=== PATIENT | male | born 1945 | race African-American/Black ===

== ENCOUNTER 2016-08-01 07:18 | Inpatient (IN) | payer OTHER ==
[~2016-08-01] VITALS: Ht 162.6 cm; Wt 57.0 kg
[~2016-08-01 07:18] MED LIST: ACET325T33 GTB; ALBU2.5V3 NEB; ASCO500S2 GTB; BISA10SU75 PR; CHLO118L3 PO; CRAN3875 GTB; ESOM40CA PO; FLEETOIL RC; HYDR-906 PO; MAGN400O4 PO; MULT9LIQ4 GTB; THIA100T10 GTB; UDCOL GTB
[2016-08-01] MEDS ORDERED: PIPER-TAZO 3.375 GM IV (PMX) 100 ML IVPB STA (07:32)
[2016-08-01] MEDS ORDERED: SODIUM CHLORIDE 0.9% 1L BAG IV* STA (07:32)
[2016-08-01] MEDS ORDERED: VANCOMYCIN 1 GM (PMX) 250 ML IVPB STA (07:32)
[2016-08-01 08:05] LABS: ADD SCAN DIFF NO
[2016-08-01 08:09] LABS: HEMATOCRIT 48.2 % (42.0-52.0); HEMOGLOBIN 15.6 g/dl (14.0-18.0); MEAN CORPUSCULAR HEMOGLOBIN 29.7 pg (29.0-33.0); MEAN CORPUSCULAR HGB CONC 32.4 g/dl (32.0-37.0); MEAN CORPUSCULAR VOLUME 91.8 fl (82.0-101.0); PLATELET COUNT 297 10^3/UL (140-415); RED BLOOD COUNT 5.25 10^6/ul (4.70-6.10); RED CELL DISTRIBUTION WIDTH 14.2 % (11.5-14.5); WHITE BLOOD COUNT 8.9 10^3/ul (4.8-10.8)
[2016-08-01 08:23] LABS: EOSINOPHILS # 0.3 10^3/ul (0.0-0.5); LYMPHOCYTES # 0.9 10^3/ul (0.8-2.9); MONOCYTE # 0.3 10^3/ul (0.3-0.9); NEUTROPHIL # 7.5 10^3/ul (1.6-7.5)
--- NOTE | 2016-08-01 08:31 | RADRPT ---
PROCEDURE: XR Chest. CLINICAL INDICATION: Possible sepsis. TECHNIQUE: Single AP portable chest COMPARISON: 10/26/2015 Chest x-ray FINDINGS: The cardiomediastinal silhouette is within normal limits of size. Tracheostomy is stable position. Atherosclerotic calcification of the aorta. Patchy interstitial and alveolar airspace opacities in the right mid and lower lung zones as well as perihilar region suspicious for early pneumonia. No p neumothorax. The osseous structures and soft tissues are unremarkable. IMPRESSION: 1. Interstitial and alveolar air space opacity in the right mid and lower lung zones suspicious andra y pneumonia. RPTAT:AAJJ Physician Roscoe Date Time Electronically viewed and signed by Physician Roscoe on 08/01/2016 08:30 ZAYDA/
[2016-08-01 08:35] LABS: ALANINE AMINOTRANSFERASE 25 IU/L (13-69); ALBUMIN 4.7 g/dl (3.3-4.9); ALKALINE PHOSPHATASE 97 IU/L (42-121); ANION GAP 19 (8-16); ASPARTATE AMINO TRANSFERASE 40 IU/L (15-46); BILIRUBIN,INDIRECT 0.4 mg/dl (0-1.1); BILIRUBIN,TOTAL 0.4 mg/dl (0.2-1.3); BLOOD UREA NITROGEN 25 mg/dl (7-20); CARBON DIOXIDE 26 mmol/L (21-31); CHLORIDE 103 mmol/L (97-110); CREATININE 0.94 mg/dl (0.61-1.24); GLUCOSE 107 mg/dl (70-220); POTASSIUM 4.5 mmol/L (3.5-5.1); SODIUM 143 mmol/L (135-144); TOTAL PROTEIN 8.6 g/dl (6.1-8.1)
[2016-08-01 08:38] LABS: ADD UMIC YES; UR BILIRUBIN (Dip) NEGATIVE (NEGATIVE); UR BLOOD (Dip) NEGATIVE (NEGATIVE); UR CLARITY SLIGHTLY CLOUDY (CLEAR); UR COLOR YELLOW (YELLOW); UR GLUCOSE (Dip) NEGATIVE (NEGATIVE); UR KETONES (Dip) NEGATIVE (NEGATIVE); UR LEUKOCYTE ESTERASE (Dip) 3+ (NEGATIVE); UR NITRITE (Dip) NEGATIVE (NEGATIVE); UR TOTAL PROTEIN (Dip) NEGATIVE (NEGATIVE); UR UROBILINOGEN (Dip) 0.2 E.U./dL (0.1-1.0)
[2016-08-01 08:39] LABS: INR 1.05; PROTIME 13.7 Sec (12.2-14.2); PT RATIO 1.1
[2016-08-01 08:40] LABS: PARTIAL THROMBOPLASTIN TIME 28.4 Sec (25.0-35.0)
--- NOTE | 2016-08-01 08:50 | ERA ---
ER Documentation Chief Complaint Date/Time DATE: 08/01/16 TIME: 08:19 Chief Complaint sob and low o2 sats per facility. hot to touch and rhochi noted per ems HPI 70-year-old male with chronic encephalopathy bedridden, quadriplegia, chronic respiratory failure, trach and G-tube dependent, DVT, chronic kidney disease stage I sent from his nursing facility for increased respiratory rate, increased heart rate, and low oxygen saturations. Patient is normally not on a vent. History is limited as the patient is nonverbal. Per EMS he had rales in the field with hypoxia. ROS Unable to obtain given patient is nonverbal. Medications Home Meds Reported Medications Ascorbic Acid* (Vitamin C* Liq) 500 Mg/5 Ml Syrup, 500 MG GTB DAILY, ML 10/20/15 Cran/Vitc/Mannose/Inulin/Brom (Uti-Stat Liquid) 3,875 Mg/30 Ml Liquid, 3875 MG GTB DAILY 10/20/15 Acetaminophen* (Tylenol*) 325 Mg Tablet, 650 MG GTB Q4H Y for MILD PAIN & TEMP 101F, TAB 10/20/15 Thiamine* (Thiamine*) 100 Mg Tablet, 100 MG GTB DAILY, TAB 10/20/15 Hydrocodone/Acetaminophen ([place] 5-325 Tablet) 1 Each Tablet, 1 EACH PO BID for PAIN, TAB 10/20/15 Hydrocodone/Acetaminophen ([place] 5-325 Tablet) 1 Each Tablet, 1 EACH PO Q6H Y for PAIN LEVEL 6-10, TAB 10/20/15 Esomeprazole Mag Trihydrate (Nexium) 40 Mg Capsule.dr, 40 MG PO DAILY, #30 CAP 10/20/15 Multivit &Minerals/Ferrous Fum (MULTIVITAMIN LIQUID) 9 Mg/15 Ml Liquid, 5 ML GTB DAILY 10/20/15 Magnesium Hydroxide* (Milk Of Magnesia*) 400 Mg/5 Ml Oral.susp, 30 ML PO DAILY Y for CONSTIPATION, ML 10/20/15 Mineral Oil (Fleet Mineral Oil Enema) 133 Ml Enema, 133 ML RC Y for IF DULCOLAX IS INEFFECTIVE, ENEMA 10/20/15 Bisacodyl* (Bisacodyl*) 10 Mg Supp, 10 MG ME DAILY Y for IF MOM IS INEFFECTIVE, SUPP 10/20/15 Docusate Sodium* (Colace* Liq) 50 Mg/5 Ml Liquid, 100 MG GTB QHS, EA 10/20/15 Chlorhexidine Gluconate* (Chlorhexidine Gluconate*) 118 Ml Liquid, 15 ML PO Q12H , ML 10/20/15 Albuterol Sulfate* (Albuterol Sulfate* Neb) 0.083%-3 Ml Neb, 2.5 MG NEB Q6H, # 30 VIAL 10/20/15 Albuterol Sulfate* (Albuterol Sulfate* Neb) 0.083%-3 Ml Neb, 2.5 MG NEB Q3H Y for WHEEZING AND SOB, #30 VIAL 10/20/15 Allergies Allergies: Coded Allergies: No Known Allergy (Unverified , 10/20/15) PMhx/Soc History of Surgery: Yes (TRACHEOSTOMY, GASTROSTOMY) Hx Neurological Disorder: No Hx Respiratory Disorders: Yes (RESPIRATORY FAILURE, PNEUMONIA, PNEUMONITIS) Hx Cardiac Disorders: No Hx Psychiatric Problems: No Hx Miscellaneous Medical Probl: Yes (Quadriplegic, CKD, DVT) Smoking Status: Unknown if ever smoked FmHx Family History: other (Unable to obtain) Physical Exam Vitals Vital Signs Date Time Temp Pulse Resp B/P Pulse Ox O2 Delivery O2 Flow Rate FiO2 08/01/16 08:48 113 20 140/101 100 Mechanical Ventilator 08/01/16 07:54 101.5 125 30 118/86 100 08/01/16 07:25 124 36 100 60 Physical Exam Const: Chronically ill-appearing, cachectic, nonverbal, mild respiratory distress Head: Atraumatic Eyes: Normal Conjunctiva ENT: Dry mucous membranes Neck: Tracheostomy in place Resp: Anterior rales noted on the right anterior lung field which resolved after placing patient on vent, otherwise clear without wheezing Cardio: Tachycardic with regular rhythm, no murmurs Abd: Soft, non tender, non distended. G-tube noted. Normal bowel sounds Skin: No petechiae or rashes Back: No midline or flank tenderness Ext: No cyanosis, or edema. Muscle atrophy noted in all 4 extremities Neur: Awake and alert, nonverbal, spontaneously moves upper extremities Result Diagram: 08/01/16 0745 08/01/16 0745 Results 24 hrs Laboratory Tests Test 08/01/16 07:45 08/01/16 08:00 White Blood Count 8.910^3/ul Red Blood Count 5.2510^6/ul Hemoglobin 15.6g/dl Hematocrit 48.2% Mean Corpuscular Volume 91.8fl Mean Corpuscular Hemoglobin 29.7pg Mean Corpuscular Hemoglobin Concent 32.4g/dl Red Cell Distribution Width 14.2% Platelet Count 93163^3/UL Mean Platelet Volume 12.0fl Neutrophils % 84.0% Lymphocytes % 10.0% Monocytes % 3.0% Eosinophils % 3.0% Neutrophils # 7.510^3/ul Lymphocytes # 0.910^3/ul Monocytes # 0.310^3/ul Eosinophils # 0.310^3/ul Differential Comment AUTO w/SCAN Prothrombin Time 13.7Sec Prothrombin Time Ratio 1.1 INR International Normalized Ratio 1.05 Activated Partial Thromboplast Time 28.4Sec Sodium Level 143mmol/L Potassium Level 4.5mmol/L Chloride Level 103mmol/L Carbon Dioxide Level 26mmol/L Anion Gap 19 Blood Urea Nitrogen 25mg/dl Creatinine 0.94mg/dl Glucose Level 107mg/dl Lactic Acid Level 3.8mmol/L Calcium Level 10.0mg/dl Total Bilirubin 0.4mg/dl Direct Bilirubin 0.00mg/dl Indirect Bilirubin 0.4mg/dl Aspartate Amino Transf (AST/SGOT) 40IU/L Alanine Aminotransferase (ALT/SGPT) 25IU/L Alkaline Phosphatase 97IU/L Troponin I < 0.012ng/ml Total Protein 8.6g/dl Albumin 4.7g/dl Globulin 3.90g/dl Albumin/Globulin Ratio 1.20 Urine Color YELLOW Urine Clarity SLIGHTLY CLOUDY Urine pH 6.0 Urine Specific [place] 1.010 Urine Ketones NEGATIVE Urine Nitrite NEGATIVE Urine Bilirubin NEGATIVE Urine Urobilinogen 0.2 E.U./dL Urine Leukocyte Esterase 3+ Urine Microscopic RBC NONE SEEN/HPF Urine Microscopic WBC 10-25/HPF Urine Epithelial Cells RARE Urine Bacteria MODERATE Urine Hemoglobin NEGATIVE Urine Glucose NEGATIVE% Urine Total Protein NEGATIVE Current Medications Medications (Trade) Dose Ordered Sig/Carlin Route PRN Reason Start Time Stop Time Status Last Admin Dose Admin Sodium Chloride 1550 ml 1,550 ml BOLUS OVER 2 HOURS STAT IV* 08/01/16 07:32 08/01/16 07:35 DC 08/01/16 08:26 Vancomycin HCl 250 ml @ 125 mls/hr ONCE STAT IVPB 08/01/16 07:32 08/01/16 09:31 DC 08/01/16 09:38 Piperacillin Sod/ Tazobactam Sod (Zosyn 3.375gm/ 100 ml (Pmx)) 100 ml @ 200 mls/hr ONCE STAT IVPB 08/01/16 07:32 08/01/16 08:01 DC 08/01/16 07:32 Acetaminophen (Tylenol Supp) 650 mg ONCE ONCE ME 08/01/16 09:00 08/01/16 09:01 DC Procedures/MDM EKG: Rate/Rhythm: Sinus tachycardia at 138 bpm QRS, ST, T-waves: [No changes consistent w/ acute ischemia] Impression: [No evidence of ischemia or arrhythmia] Chest X-ray 1V Interpreted by me: Soft Tissue: No acute abnormalities Bones: No acute abnormalities Mediastinum/Cardiac Silhouette/Lungs: Right-sided infiltrates in the right middle lobe, no cardiomegaly, no mediastinal widening Labs: CBC: No anemia, normal white blood cell count, left shift noted CMP: Elevated BUN, no evidence of electrolyte abnormality, hypoglycemia, liver failure, or biliary obstruction Troponin within normal limits Lactate 3.8 UA: Evidence of infection MDM Patient is presenting with new onset fever with signs of sepsis. I suspect possible pneumonia. He was started on vancomycin and Zosyn for healthcare associated pneumonia. Urinalysis showed signs of infection. 30 cc/kg fluids were started. Given the patient's hypoxia and respiratory distress, and he was placed on a vent with improvement of his vital signs and distress. Patient's infectious symptoms have not stabilized and the patient is at risk of rapid decompensation. The patient will be admitted to the ICU for careful hydration, respiratory management, antibiotic therapy, and infectious source control. Severe Sepsis Assessment: Infectious Source: Pneumonia, UTI End organ damage indicated by: Lactate > 2.0 mmol/L Acute Resp Failure (sat < 92% w/o oxygen) Severe Sepsis Managment: Blood Cultures X 2 before broad spectrum antibiotics initiated within 3 hours of recognition. 30 ml/kg NS bolus Completed Initial Lactate: 3.8 Repeat Lactate pending Critical Care: Time: 35 minutes Treatments/Evaluations: Emergent fluid management, while maintaining close respiratory support. Immediate broad spectrum antibiotic therapy. Simultaneous assessment for possible sources in order to direct therapy. Consideration for invasive and chemical support to prevent respiratory or cardiac collapse. Accepting Care Team: Current data and ongoing care discussed. Time: Time of admission Primary Provider: Charly Consulting: None Outstanding Data: Cultures, repeat lactate Departure Diagnosis: Primary Impression: Sepsis Qualified Code: A41.9 - Sepsis, due to unspecified organism Additional Impressions: Healthcare-associated pneumonia UTI (urinary tract infection) Qualified Code: N30.00 - Acute cystitis without hematuria Acute and chronic respiratory failure with hypoxia Condition: Critical LUCAS ACEVEDO MD Aug 01, 2016 08:34
[2016-08-01] MEDS ORDERED: ACETAMINOPHEN 650 MG SUPP PR ONE (09:00)
[2016-08-01 09:02] LABS: UR BACTERIA MODERATE; URINE RBCS NONE SEEN /HPF (0)
[2016-08-01 09:04] LABS: TROPONIN-I < 0.012 ng/ml (0.00-0.12)
[2016-08-01 10:36] LABS: AADO2 Arterial 238.9 mmHg (7.0-24.0); Allen Test ACCEPTAB; Arterial Base Excess -1.6 mmol/L (-3.0-3); Arterial COHb 0.1 % (0.0-3.0); Arterial Fraction of Oxyhgb 95.2 % (93.0-99.0); Arterial HCO3 21.6 mmol/L (22.0-26.0); Arterial MetHb 0.3 % (0.0-1.5); Arterial Total Hemglobin 14.6 g/dl (12.0-18.0); MODE VENT - AC
[2016-08-01] MEDS ORDERED: ONDANSETRON 4 MG INJ IV PRN (11:30)
[2016-08-01] MEDS ORDERED: NACL 0.9% 3 ML SYG IV SCH (11:30)
[2016-08-01] MEDS ORDERED: ENOX40DI2 SC (11:34)
[2016-08-01] MEDS ORDERED: OMEP20CA16 GTB (11:34)
[2016-08-01] MEDS ORDERED: LEVA0.634 INHALATION (11:34)
[2016-08-01] MEDS: SOD CHLORIDE 0.9% 1,000 ML IV SCH (12:00)
[2016-08-01] MEDS ORDERED: VANCOMYCIN IV PER PHARMACY XX SCH (12:00)
--- NOTE | 2016-08-01 13:03 | HP ---
DATE OF ADMISSION: 08/01/2016 REASON FOR ADMISSION: Transferred from a assisted facility because of worsening respiratory distress and febrile illness. CONSULTATIONS: 1. Dr. Tate Caruso, Infectious Disease. 2. Dr. Ryan Dent, pulmonology. HISTORY OF PRESENT ILLNESS: This is an unfortunate 70-year-old male who is chronically bedridden with chronic encephalopathy who has chronic respiratory failure with a tracheostomy usually to room air who was brought in from a assisted facility because of a febrile illness and increased respiratory rate. The patient is nonverbal and is unable to give any detailed history. The details of the patient's medical problems were obtained by review of the patient's medical records. In the emergency room, the patient was noticed to have a fever of 101.5 degrees Fahrenheit. The patient's urinalysis showed positive 3+ leukocyte esterase with urine microscopic WBC of 10 to 25. The patient's chest x-ray was showing interstitial and alveolar airspace opacity in the right mid and lower lung zones , suspicious for early pneumonia. The patient also had underlying lactic acidosis and anion gap metabolic acidosis. In the emergency room, the patient was treated with IV Zosyn and IV vancomycin along with IV normal saline bolus. The patient was started on mechanical ventilation because of underlying hypoxia. PAST MEDICAL HISTORY: Chronic bedridden status, chronic encephalopathy, chronic respiratory failure, status post tracheostomy, multiple pressure ulcers. PAST SURGICAL HISTORY: G-tube placement. CORRECTION MEDICATIONS: 1. Levalbuterol 0.63 mg inhalation q. 6 hours p.r.n. dyspnea. 2. Lovenox 40 mg subcutaneous daily. 3. Colace 100 mg via G-tube q. at bedtime. 4. Vitamin C 500 mg via G-tube daily. 5. Thiamine 100 mg via G-tube daily. 6. Magnesium hydroxide 30 mL via G-tube daily p.r.n. constipation. ALLERGIES: NO KNOWN DRUG ALLERGIES. SOCIAL HISTORY: The patient is a detention resident. The patient is nonverbal. REVIEW OF SYSTEMS: Unable to obtain review of systems because the patient is nonverbal. PHYSICAL EXAMINATION: VITAL SIGNS: Temperature 101.5, pulse of 102, respiratory rate 21, blood pressure 134/111, oxygen saturation 100% on 45% FIO2 via mechanical ventilator. GENERAL: This is a thin, frail-looking male lying in bed in no apparent distress. HEENT: Head normocephalic and atraumatic. Eyes: Anicteric sclerae. Conjunctivae clear. ENT: Nasal septum is midline. Oral mucosa is dry. Poor dentition. NECK: Tracheostomy in midline. No JVD noticed. RESPIRATORY: Bilateral coarse breath sounds. A tracheostomy connected to mechanical ventilator. On AC mode ventilation. CARDIAC: S1, S2, heard. Sinus tachycardia. ABDOMEN: Scaphoid. Left upper quadrant G-tube in place. Bowel sounds hypoactive in all 4 quadrants. GENITOURINARY: The patient has a Maldonado catheter in place. EXTREMITIES: No edema, no clubbing. Peripheral pulses are palpable. NEUROLOGIC: The patient has chronic encephalopathy. LABORATORY AND DIAGNOSTIC DATA: WBC 8.9, hemoglobin 15.6, hematocrit 48.2, platelet count 297. Sodium 143, potassium 4.5, chloride 103, carbon dioxide 26 , anion gap 19, BUN 25, creatinine 0.94, glucose 107, calcium 10.0. AST 40, ALT 25, alkaline phosphatase 97. Troponin less than 0.012. Total protein 8.6, albumin 4.7. Blood gas that was done on 50% FiO2 via mechanical ventilator, pH 7.443, pCO2 of 32.3, pO2 81.3, bicarbonate 21.6, base excess -1.6. PT 13.7, INR 1.05, PTT 28.4. Urinalysis: Urine nitrite negative, urine leukocyte esterase 3+. Urine microscopic WBC 10 to 25. Chest x-ray: Interstitial and alveolar airspace opacity in the right mid and lower lung zones, suspicious for early pneumonia. 12-lead EKG with sinus tachycardia. IMPRESSION: This is a 70-year-old male who is a detention resident, chronically bedridden, who was brought to the emergency room because of concerns of fevers and tachypnea and was found to have evidence of sepsis. He will be admitted here for further treatment and evaluation. ASSESSMENT AND PLAN: 1. Suspected sepsis. The patient has febrile illness, tachypnea, and lactic acidosis. The suspected source of infection is either urine and/or lungs. The patient has no evidence of any septic shock. The patient will be started on empiric antibiotics. Harvey cultures will be obtained. Infectious disease consult will be obtained. 2. Acute on chronic respiratory failure. The patient has chronic respiratory failure. He has a tracheostomy usually on room air. The patient has been noticed to be hypoxic. The patient was started on mechanical ventilation. The patient will be started on inhaled bronchodilators. Pulmonology consult will be obtained for ventilator management. 3. Multiple skin wounds. Wound care consult will be obtained for further evaluation of these wounds. 4. Anion gap acidosis, most probably secondary to #1. The patient will be adequately hydrated. The patient will be maintained on antibiotics. Plan. The patient will be admitted to inpatient intensive care unit. The patient will be started on DVT prophylaxis and gastrointestinal prophylaxis. Activities will be bed rest. The rest of the patient's management will be based on the clinical course, the results of diagnostic studies, and input from consultants. Based on the patient's clinical presentation, he most probably requires at least 2 midnights' stay for further management and evaluation of his clinical presentation. The case and management of this patient was fully discussed with Dr. Sevilla. KYMBERLY SEVILLA MD, AM/JOSE Conf#: [id number] DID#: [id number] MTDD
--- NOTE | 2016-08-01 13:04 | CONS ---
Date/Time of Note Date/Time of Note DATE: 08/01/16 TIME: 12:58 Assessment/Plan Assessment/Plan Additional Assessment/Plan Chest x-ray was reviewed from today which is showing right upper lobe pneumonia. UA is positive for UTI. Ventilator setting; AC of 12, tidal volume 500, PEEP of 5, 50% FiO2. Assessment recommendations; next 1. Patient admitted with pneumonia and UTI currently on appropriate antibiotic regimen. 2. Chronic respiratory failure, now requiring invasive mechanical ventilation. 3. History of paraplegia. Continue current treatment. Obtain follow-up chest x-ray in 24-48 hours. Consultation Date/Type/Reason Admit Date/Time Date of Consultation: Aug 01, 2016 Type of Consultation: Pulmonary/critical care Reason for Consultation Pulmonary consultation requested for evaluation of sepsis and pneumonia. History of present illness; patient is a 70-year-old F [place] male who was transferred to go to ER from long-term with complaints of being short of breath and tachypneic and tachycardic. Patient has been diagnosed with UTI with sepsis as well as right lower lobe pneumonia. The patient is awake and is now requiring invasive mechanical ventilation. Patient usually maintained on tracheal T piece at the long-term. Patient is awake and alert. Past medical history; next 1. Patient with history of chronic respiratory failure, usually maintained on tracheal T piece. 2. History of paraplegia. 3. History of DVT. 4. History of G-tube and tracheostomy. 5. History of sacral decubitus, stage I. Medications; reviewed. Allergies; none. Social history; patient never smoked. Family history; noncontributory. Occupation she; patient currently on disability. Review of systems; limited review system could be obtained patient denies any shortness of breath any chest pain any nausea vomiting. Stephani; elderly male, on ventilator via tracheostomy currently in no distress. Awake. Social History Smoking Status: Unknown if ever smoked Exam/Review of Systems Vital Signs Vitals Vital Signs Date Time Temp Pulse Resp B/P Pulse Ox O2 Delivery O2 Flow Rate FiO2 08/01/16 11:57 116 23 136/96 100 Mechanical Ventilator 08/01/16 10:47 45 08/01/16 07:54 101.5 Exam HEENT exam is; supple neck, no JVD. No lymphadenopathy. Midline trachea. No thyromegaly. Patient is edentulous. Pupils are small bilaterally. Chest examination; diminished breath sounds bilaterally. No added sound. S1- S2 audible, no murmurs. Regular rhythm. Abdomen examination; soft, no organomegaly. G-tube in place. Bowel sounds audible. Extremity exam; no peripheral edema. Back exam; stage I sacral decubitus ulcer. [employer] examination; patient is paraplegic. Results Result Diagram: 08/01/16 0745 08/01/16 0745 Results 24 hrs Laboratory Tests Test 08/01/16 07:45 08/01/16 08:00 08/01/16 09:52 08/01/16 09:55 White Blood Count 8.9 # Red Blood Count 5.25 # Hemoglobin 15.6 # Hematocrit 48.2 # Mean Corpuscular Volume 91.8 Mean Corpuscular Hemoglobin 29.7 Mean Corpuscular Hemoglobin Concent 32.4 Red Cell Distribution Width 14.2 Platelet Count 297 Mean Platelet Volume 12.0 H Neutrophils % 84.0 H Lymphocytes % 10.0 L Monocytes % 3.0 Eosinophils % 3.0 Neutrophils # 7.5 Lymphocytes # 0.9 Monocytes # 0.3 Eosinophils # 0.3 Differential Comment AUTO w/SCAN Prothrombin Time 13.7 Prothrombin Time Ratio 1.1 INR International Normalized Ratio 1.05 Activated Partial Thromboplast Time 28.4 Sodium Level 143 Potassium Level 4.5 Chloride Level 103 Carbon Dioxide Level 26 Anion Gap 19 H Blood Urea Nitrogen 25 H Creatinine 0.94 Glucose Level 107 Lactic Acid Level 3.8 H 2.7 H Calcium Level 10.0 Total Bilirubin 0.4 Direct Bilirubin 0.00 Indirect Bilirubin 0.4 Aspartate Amino Transf (AST/SGOT) 40 Alanine Aminotransferase (ALT/SGPT) 25 Alkaline Phosphatase 97 Troponin I < 0.012 Total Protein 8.6 H Albumin 4.7 Globulin 3.90 H Albumin/Globulin Ratio 1.20 Urine Color YELLOW Urine Clarity SLIGHTLY CLOUDY Urine pH 6.0 Urine Specific [place] 1.010 Urine Ketones NEGATIVE Urine Nitrite NEGATIVE Urine Bilirubin NEGATIVE Urine Urobilinogen 0.2 E.U./dL Urine Leukocyte Esterase 3+ H Urine Microscopic RBC NONE SEEN Urine Microscopic WBC 10-25 Urine Epithelial Cells RARE Urine Bacteria MODERATE Urine Hemoglobin NEGATIVE Urine Glucose NEGATIVE Urine Total Protein NEGATIVE Blood Gas Specimen Source Blood arterial Arterial Blood Date Drawn 08/01/2016 10:24:47 AM Arterial Blood pH (Temp corrected) 7.443 Arterial Blood pCO2 (Temp correct) 32.3 L Arterial Blood pO2 (Temp corrected) 81.3 Arterial Blood HCO3 21.6 L Arterial Blood Base Excess -1.6 Arterial Blood Oxygen Saturation 95.6 Ankit Test ACCEPTAB Arterial Blood Gas Puncture Site Right Radial Arterial Blood Carboxyhemoglobin 0.1 Arterial Blood Methemoglobin 0.3 Blood Gas A-a O2 Differential 238.9 H Oxyhemoglobin Percent 95.2 Total Hemoglobin 14.6 Blood Gas Temperature 37.0 Blood Gas Respiration Rate 12.0 Blood Gas Actual Respiration Rate 17 Blood Gas Modality VENT - AC FiO2 50.0 Blood Gas Tidal Volume 500.0 Blood Gas Low PEEP Setting 5.0 Blood Gas Notified Whom LS Blood Gas Notified Time 08/01/2016 10:35:49 AM Medications Medications Current Medications Ondansetron HCl (Zofran Inj) 4 mg Q6H PRN IV NAUSEA AND/OR VOMITING; Start at 11:30 Acetaminophen (Tylenol Tab) 650 mg Q6H PRN GTB PAIN LEVEL 1-3 OR FEVER; Start 08/01/16 at 11:30 Morphine Sulfate (morphine) 2 mg Q4H PRN IV PAIN LEVEL 7-10; Start 08/01/16 at 11:30 Famotidine 20 mg 20 mg Q12 IV ; Start 08/01/16 at 21:00 Piperacillin Sod/ Tazobactam Sod 100 ml @ 100 mls/hr Q6 IVPB ; Start 08/01/16 at 12:30 Sodium Chloride (NS) 1,000 ml @ 75 mls/hr [id number] IV ; Start 08/01/16 at 12:00 Enoxaparin Sodium (Lovenox) 30 mg DAILY SC ; Start 08/02/16 at 09:00 Hydralazine HCl 10 mg 10 mg Q6H PRN IV SBP>160; Start 08/01/16 at 12:00 Vancomycin HCl (Vancocin) 250 ml @ 125 mls/hr Q24H IVPB ; Start 08/02/16 at 08: 00 SAMMY AGUSTIN 18, 2017 13:04
[2016-08-01] MEDS: PIPER-TAZO 3.375 GM IV (PMX) 100 ML IVPB SCH ×2 (13:30→20:00)
[2016-08-01] MEDS ORDERED: ALBUTEROL 0.083% (NEB) 2.5 MG/3 ML AMP HHN SCH (14:00)
--- NOTE | 2016-08-01 14:44 | CONS ---
DATE OF ADMISSION: 08/01/2016 DATE OF CONSULTATION: 08/01/2016 TYPE OF CONSULTATION: Infectious Disease. REASON FOR CONSULTATION: Antibiotic management. HISTORY OF PRESENT ILLNESS: Ric Baez is a 70-year-old male who was transferred from [facility] facility with worsening respiratory failure and febrile illness. His past problems inclu de: 1. Chronic encephalopathy. 2. Ventilator-dependent respiratory failure. 3. Status post tracheostomy. The patient was brought in with increased respiratory rate. He is nonverbal and unable to give any detailed information. In the emergency room, his temperature was 101.5. The patient's urinalysis s howed 3+ leukocyte esterase. A urine microscopic was 10 to 25 white cells per high-power field. X- ray showed interstitial and alveolar airspace opacity in the right mid and lower lung zones, suspici ous for early pneumonia. The patient has underlying lactic acidosis and anion gap metabolic acidosi s. In the emergency room, he was treated with vancomycin and Zosyn along with IV saline. PAST MEDICAL HISTORY: As outlined including multiple pressure sores. PAST SURGICAL HISTORY: Includes tracheostomy and G-tube placement. FAMILY HISTORY: Noncontributory. SOCIAL HISTORY: He does not smoke, drink, or abuse drugs. He is encephalopathic. ALLERGIES: NONE TO PENICILLIN, SULFA, OR FOODS. MEDICATIONS: Per chart. REVIEW OF SYSTEMS: As per HPI. PHYSICAL EXAMINATION: GENERAL: The patient is a thin, frail appearing black male who is lying in bed in no acute distress . VITAL SIGNS: T-max of 101.5, pulse of 102. He is on 45% FIO2 mechanical ventilation with oxygen sa turation 100%. SKIN: Without generalized rash. HEENT: Within normal limits. NECK: Supple. LYMPH NODES: None palpable. His dentition is very poor. NECK: Supple. Tracheostomy is midline. CHEST: Decreased breath sounds at the bases. HEART: Without murmur or gallop. ABDOMEN: Soft, nontender, without organosplenomegaly or masses. G-tube in place without leakage. EXTREMITIES: Without cyanosis, clubbing, or edema. RECTAL AND GENITAL: Maldonado catheter in place. NEUROLOGIC: No focal neurological abnormalities. HOSPITAL COURSE: On admission, his white count was 8.9, H and H of 15.6 and 48.2, platelet count 29 7,000. BUN and creatinine 25/0.94. Blood gas done with FIO2 of 50%, was reasonable. Urinalysis sh owed urine leukocyte esterase was 3+ and 10 to 25 white cells per high powered field. Chest x-ray i s as noted, interstitial and alveolar airspace opacities in the right mid and lower lung zones. The patient was also seen by Dr. Dent for pulmonary who notes that the patient has pneumonia. He is a lso paraplegic. We will continue him on current therapy. I will dictate my findings to the hospita list and Dr. Dent. Dictated By: SHRUTHI LAZO MD, JD/JOSE Conf#: [id number] DID#: [id number]
[2016-08-01] MEDS: ALBUTEROL 18 GM INHALER INH SCH (20:08)
[2016-08-01] MEDS: FAMOTIDINE 20 MG INJ IV SCH (20:17)
[2016-08-02] MEDS: PIPER-TAZO 3.375 GM IV (PMX) 100 ML IVPB SCH ×4 (00:53→17:43)
[2016-08-02] MEDS: morphine 2 MG INJ IV PRN ×5 (00:53→20:20)
[2016-08-02] MEDS: SOD CHLORIDE 0.9% 1,000 ML IV SCH ×2 (00:53→16:32)
[2016-08-02] MEDS: ALBUTEROL 18 GM INHALER INH SCH ×5 (01:40→19:10)
[2016-08-02 05:58] LABS: ADD SCAN DIFF NO
[2016-08-02 06:09] LABS: HEMATOCRIT 38.5 % (42.0-52.0); HEMOGLOBIN 12.5 g/dl (14.0-18.0); MEAN CORPUSCULAR HEMOGLOBIN 30.4 pg (29.0-33.0); MEAN CORPUSCULAR HGB CONC 32.5 g/dl (32.0-37.0); MEAN CORPUSCULAR VOLUME 93.7 fl (82.0-101.0); MEAN PLATELET VOLUME 11.5 fl (7.4-10.4); PLATELET COUNT 291 10^3/UL (140-415); RED BLOOD COUNT 4.11 10^6/ul (4.70-6.10); RED CELL DISTRIBUTION WIDTH 14.5 % (11.5-14.5); WHITE BLOOD COUNT 16.8 10^3/ul (4.8-10.8)
[2016-08-02 06:41] LABS: MAGNESIUM 2.1 mg/dl (1.7-2.5); PHOSPHORUS 2.5 mg/dl (2.5-4.9)
[2016-08-02 06:42] LABS: ALBUMIN 4.2 g/dl (3.3-4.9); ALBUMIN/GLOBULIN RATIO 1.31; BILIRUBIN,INDIRECT 0.4 mg/dl (0-1.1); BILIRUBIN,TOTAL 0.4 mg/dl (0.2-1.3); CALCIUM 9.1 mg/dl (8.4-10.2); CREATININE 0.99 mg/dl (0.61-1.24); POTASSIUM 3.8 mmol/L (3.5-5.1); TOTAL PROTEIN 7.4 g/dl (6.1-8.1)
[2016-08-02 07:13] LABS: THYROID STIMULATING HORMONE 1.62 MIU/L (0.465-4.680)
[2016-08-02] MEDS: VANCOMYCIN 1 GM in NS 250 ML IVPB SCH (07:56)
[2016-08-02] MEDS: FAMOTIDINE 20 MG INJ IV SCH ×2 (09:34→22:59)
[2016-08-02] MEDS: ENOXAPARIN 30 MG/0.3 ML SYG SC SCH (09:34)
[2016-08-02 10:11] LABS: EOSINOPHILS # 0.5 10^3/ul (0.0-0.5); LYMPHOCYTES # 1.7 10^3/ul (0.8-2.9); MONOCYTE # 0.5 10^3/ul (0.3-0.9); NEUTROPHIL # 10.8 10^3/ul (1.6-7.5)
--- NOTE | 2016-08-02 11:56 | PN ---
Date/Time of Note Date/Time of Note DATE: 08/02/16 TIME: 11:54 Assessment/Plan VTE Prophylaxis VTE Prophylaxis Intervention: LMWH Assessment/Plan Chief Complaint/Hosp Course 1. Sepsis secondary to underlying urinary tract infection and possible healthcare associated pneumonia. The patient has no evidence of any septic shock. The patient will be continued on empiric antibiotics. Infectious disease is following the patient 2. Acute on chronic respiratory failure. The patient has chronic respiratory failure. He has a tracheostomy usually on room air. The patient has been noticed to be hypoxic. The patient was started on mechanical ventilation. The patient will be maintained on inhaled bronchodilators. Pulmonology following. 3. Multiple skin wounds. Wound care consult will be obtained for further evaluation of these wounds. 4. Anion gap acidosis, most probably secondary to #1. The patient will be adequately hydrated. The patient will be maintained on antibiotics. 5. Dysphagia. Continue tube feedings. Aspiration precautions. 6. Fluids, electrolytes, and nutrition. Continue IV hydration. Continue G- tube feedings. 7. DVT prophylaxis. Subcutaneous Lovenox. 8. Gastrointestinal prophylaxis. Histamine 2 receptor blockers. 9. Plan. Continue antibiotics. Await final cultures. Continue supportive care. Weaning off ventilator as per pulmonology. Case discussed with . Problems: Subjective 24 Hr Interval Summary Free Text/Dictation The patient remains afebrile. Exam/Review of Systems Vital Signs Vitals Vital Signs Date Time Temp Pulse Resp B/P Pulse Ox O2 Delivery O2 Flow Rate FiO2 08/02/16 11:11 107 23 97 45 08/02/16 09:54 98.9 08/02/16 09:09 109/71 Mechanical Ventilator Intake and Output 08/01/16 08/01/16 08/02/16 15:00 23:00 07:00 Intake Total 1475 ml Output Total 1100 ml Balance 375 ml Exam GENERAL: This is a thin, frail-looking male lying in bed in no apparent distress. HEENT: Head normocephalic and atraumatic. Eyes: Anicteric sclerae. Conjunctivae clear. ENT: Nasal septum is midline. Oral mucosa is dry. Poor dentition. NECK: Tracheostomy in midline. No JVD noticed. RESPIRATORY: Bilateral coarse breath sounds. A tracheostomy connected to mechanical ventilator. On AC mode ventilation. CARDIAC: S1, S2, heard. Sinus tachycardia. ABDOMEN: Scaphoid. Left upper quadrant G-tube in place. Bowel sounds hypoactive in all 4 quadrants. GENITOURINARY: The patient has a Maldonado catheter in place. EXTREMITIES: No edema, no clubbing. Peripheral pulses are palpable. NEUROLOGIC: The patient has chronic encephalopathy. Results Result Diagram: 08/02/16 0530 08/02/16 0530 Results 24 hrs Laboratory Tests Test 08/01/16 14:50 08/02/16 05:30 Lactic Acid Level 3.3 H White Blood Count 16.8 #H Red Blood Count 4.11 #L Hemoglobin 12.5 L Hematocrit 38.5 #L Mean Corpuscular Volume 93.7 Mean Corpuscular Hemoglobin 30.4 Mean Corpuscular Hemoglobin Concent 32.5 Red Cell Distribution Width 14.5 Platelet Count 291 Mean Platelet Volume 11.5 H Neutrophils % 64.0 Band Neutrophils % 20.0 H Lymphocytes % 10.0 L Monocytes % 3.0 Eosinophils % 3.0 Basophils % Nucleated Red Blood Cells % Neutrophils # 10.8 H Lymphocytes # 1.7 Monocytes # 0.5 Eosinophils # 0.5 Basophils # Nucleated Red Blood Cells # Differential Comment MANUAL DIFF Sodium Level 143 Potassium Level 3.8 Chloride Level 109 Carbon Dioxide Level 26 Anion Gap 12 # Blood Urea Nitrogen 15 # Creatinine 0.99 Glucose Level 99 Hemoglobin A1c 5.6 Calcium Level 9.1 Phosphorus Level 2.5 Magnesium Level 2.1 Total Bilirubin 0.4 Direct Bilirubin 0.00 Indirect Bilirubin 0.4 Aspartate Amino Transf (AST/SGOT) 27 Alanine Aminotransferase (ALT/SGPT) 34 Alkaline Phosphatase 76 Total Protein 7.4 # Albumin 4.2 Globulin 3.20 Albumin/Globulin Ratio 1.31 Triglycerides Level 61 Cholesterol Level 133 LDL Cholesterol, Calculated 77 HDL Cholesterol 44 Cholesterol/HDL Ratio 3.0 Vitamin D 1,25-Dihydroxy 28.6 L Thyroid Stimulating Hormone (TSH) 1.620 Free Thyroxine 1.20 Medications Medications Current Medications Ondansetron HCl (Zofran Inj) 4 mg Q6H PRN IV NAUSEA AND/OR VOMITING Last administered on 08/02/16t 00:53; Admin Dose 4 MG; Start 08/01/16 at 11:30 Acetaminophen (Tylenol Tab) 650 mg Q6H PRN GTB PAIN LEVEL 1-3 OR FEVER; Start 08/01/16 at 11:30 Morphine Sulfate (morphine) 2 mg Q4H PRN IV PAIN LEVEL 7-10 Last administered on 08/02/16 08:49; Admin Dose 2 MG; Start 08/01/16 at 11:30 Famotidine 20 mg 20 mg Q12 IV Last administered on 08/02/16 09:34; Admin Dose 20 MG; Start 08/01/16 at 21:00 Piperacillin Sod/ Tazobactam Sod 100 ml @ 100 mls/hr Q6 IVPB Last administered on 08/02/16 11:37; Admin Dose 100 MLS/HR; Start 08/01/16 at 12:30 Sodium Chloride (NS) 1,000 ml @ 75 mls/hr [id number] IV Last administered on 08/02 00:53; Admin Dose 75 MLS/HR; Start 08/01/16 at 12:00 Enoxaparin Sodium (Lovenox) 30 mg DAILY SC Last administered on 08/02/16 09:34 ; Admin Dose 30 MG; Start 08/02/16 at 09:00 Hydralazine HCl 10 mg 10 mg Q6H PRN IV SBP>160; Start 08/01/16 at 12:00 Vancomycin HCl (Vancocin) 250 ml @ 125 mls/hr Q24H IVPB Last administered on 07:56; Admin Dose 125 MLS/HR; Start 08/02/16 at 08:00 Albuterol (Ventolin Hfa) 4 puff Q6 INH Last administered on 08/02/16 11:08; Admin Dose 4 PUFF; Start 08/01/16 at 20:00 KYMBERLY CAMPOS NP Aug 02, 2016 11:56
--- NOTE | 2016-08-02 13:13 | CONS ---
Date/Time of Note Date/Time of Note DATE: 08/02/16 TIME: 13:11 Assessment/Plan Assessment/Plan Additional Assessment/Plan Ventilator setting; AC of 12, tidal volume 500, PEEP of 5, 45% FiO2. Assessment recommendations; next 1. Patient admitted for pneumonia and sepsis. Patient also has UTI. 2. Chronic respiratory failure patient now requiring invasive mechanical ventilation. 3. History of dementia and paraplegia. Continue current supportive care. Consultation Date/Type/Reason Admit Date/Time Initial Consult Date 08/01/16 Type of Consultation: Pulmonary/critical care 24 HR Interval Summary Free Text/Dictation Patient condition is stable. Patient still in the emergency room. Awaiting transfer to ICU. Patient is not much responsive. Stephani; elderly male, on ventilator via tracheostomy currently in no distress. Minimally arousable. Exam/Review of Systems Vital Signs Vitals Vital Signs Date Time Temp Pulse Resp B/P Pulse Ox O2 Delivery O2 Flow Rate FiO2 08/02/16 11:11 107 23 97 45 08/02/16 09:54 98.9 08/02/16 09:09 109/71 Mechanical Ventilator Intake and Output 08/01/16 08/01/16 08/02/16 15:00 23:00 07:00 Intake Total 1475 ml Output Total 1100 ml Balance 375 ml Exam HEENT exam; supple neck, no JVD. No lymphadenopathy. Midline trachea. No thyromegaly. Patient multiple carious teeth. Tracheostomy in place with clean insertion site. Chest exam; diminished but clear vessel. S1-S2 audible, no murmurs. Regular rhythm. Abdomen examination; soft, no organomegaly. Bowel sounds audible. G-tube in place. Extremity exam; no peripheral edema. Patient has significant muscle loss involving the entire body. MEDICAL SALES SPECIALIST exam; patient remains minimally responsive. Results Result Diagram: 08/02/16 0530 08/02/16 0530 Results 24 hrs Laboratory Tests Test 08/01/16 14:50 08/02/16 05:30 Lactic Acid Level 3.3 H White Blood Count 16.8 #H Red Blood Count 4.11 #L Hemoglobin 12.5 L Hematocrit 38.5 #L Mean Corpuscular Volume 93.7 Mean Corpuscular Hemoglobin 30.4 Mean Corpuscular Hemoglobin Concent 32.5 Red Cell Distribution Width 14.5 Platelet Count 291 Mean Platelet Volume 11.5 H Neutrophils % 64.0 Band Neutrophils % 20.0 H Lymphocytes % 10.0 L Monocytes % 3.0 Eosinophils % 3.0 Basophils % Nucleated Red Blood Cells % Neutrophils # 10.8 H Lymphocytes # 1.7 Monocytes # 0.5 Eosinophils # 0.5 Basophils # Nucleated Red Blood Cells # Differential Comment MANUAL DIFF Sodium Level 143 Potassium Level 3.8 Chloride Level 109 Carbon Dioxide Level 26 Anion Gap 12 # Blood Urea Nitrogen 15 # Creatinine 0.99 Glucose Level 99 Hemoglobin A1c 5.6 Calcium Level 9.1 Phosphorus Level 2.5 Magnesium Level 2.1 Total Bilirubin 0.4 Direct Bilirubin 0.00 Indirect Bilirubin 0.4 Aspartate Amino Transf (AST/SGOT) 27 Alanine Aminotransferase (ALT/SGPT) 34 Alkaline Phosphatase 76 Total Protein 7.4 # Albumin 4.2 Globulin 3.20 Albumin/Globulin Ratio 1.31 Triglycerides Level 61 Cholesterol Level 133 LDL Cholesterol, Calculated 77 HDL Cholesterol 44 Cholesterol/HDL Ratio 3.0 Vitamin D 1,25-Dihydroxy 28.6 L Thyroid Stimulating Hormone (TSH) 1.620 Free Thyroxine 1.20 Medications Medications Current Medications Ondansetron HCl (Zofran Inj) 4 mg Q6H PRN IV NAUSEA AND/OR VOMITING Last administered on 08/02/16 00:53; Admin Dose 4 MG; Start 08/01/16 at 11:30 Acetaminophen (Tylenol Tab) 650 mg Q6H PRN GTB PAIN LEVEL 1-3 OR FEVER; Start 08/01/16 at 11:30 Morphine Sulfate (morphine) 2 mg Q4H PRN IV PAIN LEVEL 7-10 Last administered on 08/02/16 08:49; Admin Dose 2 MG; Start 08/01/16 at 11:30 Famotidine 20 mg 20 mg Q12 IV Last administered on 08/02/16 09:34; Admin Dose 20 MG; Start 08/01/16 at 21:00 Piperacillin Sod/ Tazobactam Sod 100 ml @ 100 mls/hr Q6 IVPB Last administered on 08/02/16 11:37; Admin Dose 100 MLS/HR; Start 08/01/16 at 12:30 Sodium Chloride (NS) 1,000 ml @ 75 mls/hr [id number] IV Last administered on 08/02 00:53; Admin Dose 75 MLS/HR; Start 6/18/17 at 12:00 Enoxaparin Sodium (Lovenox) 30 mg DAILY SC Last administered on 08/02/16 09:34 ; Admin Dose 30 MG; Start 08/02/16 at 09:00 Hydralazine HCl 10 mg 10 mg Q6H PRN IV SBP>160; Start 08/01/16 at 12:00 Vancomycin HCl (Vancocin) 250 ml @ 125 mls/hr Q24H IVPB Last administered on 07:56; Admin Dose 125 MLS/HR; Start 08/02/16 at 08:00 Albuterol (Ventolin Hfa) 4 puff Q6 INH Last administered on 08/02/16 11:08; Admin Dose 4 PUFF; Start 08/01/16 at 20:00 SAMMY AGUSTIN Aug 02, 2016 13:13
[2016-08-02] MEDS: ACETAMINOPHEN 325 MG TAB GTB PRN (20:20)
[2016-08-02 23:03] VITALS: TEMP 98.9
[2016-08-02 23:46] VITALS: PULSE 120
[2016-08-03] VITALS (25 sets, daily range): BP systolic 113–125; BP diastolic 72–79; PULSE 101–120; RESP 17–27; Ht 162.6 cm; Wt 57.0 kg
[2016-08-03] MEDS: PIPER-TAZO 3.375 GM IV (PMX) 100 ML IVPB SCH ×4 (00:55→18:32)
[2016-08-03] MEDS: ALBUTEROL 18 GM INHALER INH SCH ×4 (01:32→19:34)
[2016-08-03] MEDS: ACETAMINOPHEN 325 MG TAB GTB PRN (05:04)
[2016-08-03] MEDS: SOD CHLORIDE 0.9% 1,000 ML IV SCH ×2 (05:06→17:20)
[2016-08-03 06:16] LABS: ADD SCAN DIFF NO
[2016-08-03 06:29] LABS: BASOPHILS % 0.2 % (0.0-2.0); EOSINOPHILS # 0.2 10^3/ul (0.0-0.5); EOSINOPHILS % 1.3 % (0.0-7.0); HEMATOCRIT 31.3 % (42.0-52.0); HEMOGLOBIN 10.2 g/dl (14.0-18.0); LYMPHOCYTES % 6.2 % (15.0-51.0); MEAN CORPUSCULAR HEMOGLOBIN 30.3 pg (29.0-33.0); MEAN CORPUSCULAR HGB CONC 32.6 g/dl (32.0-37.0); MEAN CORPUSCULAR VOLUME 92.9 fl (82.0-101.0); MEAN PLATELET VOLUME 11.9 fl (7.4-10.4); MONOCYTE # 0.6 10^3/ul (0.3-0.9); MONOCYTES % 3.7 % (0.0-11.0); NEUTROPHIL # 14.5 10^3/ul (1.6-7.5); NEUTROPHILS % 87.6 % (39.0-77.0); PLATELET COUNT 212 10^3/UL (140-415); RED BLOOD COUNT 3.37 10^6/ul (4.70-6.10); RED CELL DISTRIBUTION WIDTH 14.7 % (11.5-14.5); WHITE BLOOD COUNT 16.6 10^3/ul (4.8-10.8)
[2016-08-03 07:08] LABS: ALBUMIN 3.4 g/dl (3.3-4.9); ALBUMIN/GLOBULIN RATIO 1.17; BILIRUBIN,INDIRECT 0.2 mg/dl (0-1.1); BILIRUBIN,TOTAL 0.2 mg/dl (0.2-1.3); CALCIUM 8.5 mg/dl (8.4-10.2); CREATININE 0.97 mg/dl (0.61-1.24); POTASSIUM 3.5 mmol/L (3.5-5.1); TOTAL PROTEIN 6.3 g/dl (6.1-8.1)
[2016-08-03 07:21] LABS: PHOSPHORUS 1.8 mg/dl (2.5-4.9)
[2016-08-03] MEDS: FAMOTIDINE 20 MG INJ IV SCH ×2 (08:24→21:17)
[2016-08-03] MEDS: VANCOMYCIN 1 GM in NS 250 ML IVPB SCH (08:24)
[2016-08-03] MEDS: ENOXAPARIN 30 MG/0.3 ML SYG SC SCH (08:30)
--- NOTE | 2016-08-03 12:26 | CONS ---
Date/Time of Note Date/Time of Note DATE: 08/03/16 TIME: 12:24 Assessment/Plan Assessment/Plan Additional Assessment/Plan Ventilator setting; AC of 12, tidal volume 500, PEEP of 5, 45% FiO2. Assessment recommendations; 1. Patient admitted with sepsis from UTI and pneumonia. 2. Advanced dementia. 3. Chronic respiratory failure, now requiring invasive mechanical ventilation. 4. History of paraplegia and dementia. Continue current treatment. Consultation Date/Type/Reason Admit Date/Time Aug 01, 2016 at 11:32 Initial Consult Date 08/01/16 Type of Consultation: Pulmonary/critical care 24 HR Interval Summary Free Text/Dictation Patient's condition remains stable. Remains minimally responsive. Has remained hemodynamically stable. General exam; elderly male, on ventilator via tracheostomy currently in no distress. Exam/Review of Systems Vital Signs Vitals Vital Signs Date Time Temp Pulse Resp B/P Pulse Ox O2 Delivery O2 Flow Rate FiO2 08/03/16 11:47 96 22 99 45 08/03/16 11:45 98.0 120/79 08/02/16 23:03 Mechanical Ventilator Intake and Output 08/02/16 08/02/16 08/03/16 15:00 23:00 07:00 Intake Total 575 ml Output Total 575 ml Balance -575 ml 575 ml Exam HEENT examination; supple neck, no JVD. No lymphadenopathy. Midline trachea. No thyromegaly. Patient has multiple carious teeth. Tracheostomy in place. Chest examined; diminished breath sounds throughout. S1-S2 audible, no murmurs. Regular rhythm. Abdomen examination; soft, G-tube in place. No organomegaly. Extremity exam is; no peripheral edema. BLEACHER LARD exam is; patient is minimally responsive. Results Result Diagram: 08/03/16 0555 08/03/16 0555 Results 24 hrs Laboratory Tests Test 08/03/16 05:55 White Blood Count 16.6 H Red Blood Count 3.37 L Hemoglobin 10.2 L Hematocrit 31.3 L Mean Corpuscular Volume 92.9 Mean Corpuscular Hemoglobin 30.3 Mean Corpuscular Hemoglobin Concent 32.6 Red Cell Distribution Width 14.7 H Platelet Count 212 # Mean Platelet Volume 11.9 H Neutrophils % 87.6 H Lymphocytes % 6.2 L Monocytes % 3.7 Eosinophils % 1.3 Basophils % 0.2 Nucleated Red Blood Cells % 0.0 Neutrophils # 14.5 H Lymphocytes # 1.0 Monocytes # 0.6 Eosinophils # 0.2 Basophils # 0.0 Nucleated Red Blood Cells # 0.0 Sodium Level 143 Potassium Level 3.5 Chloride Level 112 H Carbon Dioxide Level 23 Anion Gap 12 Blood Urea Nitrogen 13 Creatinine 0.97 Glucose Level 128 Calcium Level 8.5 Phosphorus Level 1.8 L Magnesium Level 2.0 Total Bilirubin 0.2 Direct Bilirubin 0.00 Indirect Bilirubin 0.2 Aspartate Amino Transf (AST/SGOT) 24 Alanine Aminotransferase (ALT/SGPT) 30 Alkaline Phosphatase 94 Total Protein 6.3 # Albumin 3.4 Globulin 2.90 Albumin/Globulin Ratio 1.17 Medications Medications Current Medications Ondansetron HCl (Zofran Inj) 4 mg Q6H PRN IV NAUSEA AND/OR VOMITING Last administered on 08/02/16 00:53; Admin Dose 4 MG; Start 08/01/16 at 11:30 Acetaminophen (Tylenol Tab) 650 mg Q6H PRN GTB PAIN LEVEL 1-3 OR FEVER Last administered on 08/03/16 05:04; Admin Dose 650 MG; Start 08/01/16 at 11:30 Morphine Sulfate (morphine) 2 mg Q4H PRN IV PAIN LEVEL 7-10 Last administered on 08/02/16 20:20; Admin Dose 2 MG; Start 08/01/16 at 11:30 Famotidine 20 mg 20 mg Q12 IV Last administered on 08/03/16 08:24; Admin Dose 20 MG; Start 08/01/16 at 21:00 Piperacillin Sod/ Tazobactam Sod 100 ml @ 100 mls/hr Q6 IVPB Last administered on 08/03/16 05:04; Admin Dose 100 MLS/HR; Start 08/01/16 at 12:30 Sodium Chloride (NS) 1,000 ml @ 75 mls/hr [id number] IV Last administered on 08/03 05:06; Admin Dose 75 MLS/HR; Start 08/01/16 at 12:00 Enoxaparin Sodium (Lovenox) 30 mg DAILY SC Last administered on 08/03/16 08:30 ; Admin Dose 30 MG; Start 08/02/16 at 09:00 Hydralazine HCl 10 mg 10 mg Q6H PRN IV SBP>160; Start 08/01/16 at 12:00 Vancomycin HCl (Vancocin) 250 ml @ 125 mls/hr Q24H IVPB Last administered on t 08:24; Admin Dose 125 MLS/HR; Start 08/02/16 at 08:00 Miscellaneous Information (*Rx Drug Level Order Reminder*) 1 ONCE ONCE XX ; Start 08/04/16 at 07:00; Stop 08/04/16 at 07:01 SAMMY AGUSTIN Aug 03, 2016 12:26
--- NOTE | 2016-08-03 12:55 | PN ---
DATE: 08/03/2016 SUBJECTIVE: No acute changes. The patient is lying comfortably in bed. No fevers. He had some lo ose stools. VITAL SIGNS: Temperature max 100.4, T-current 98, pulse 96, respirations 20, blood pressure 120/79, saturation 95% on vent. LABORATORY DATA: WBC 16.6, H and H 10.2 and 31.3, platelets 212, neutrophils 87.6, no bands. BUN 1 3, creatinine 0.97. INDWELLINGS: Trach, PEG, Maldonado. ANTIMICROBIALS: The patient is on: 1. IV vancomycin. 2. Zosyn. MICROBIOLOGY: Urine culture growing Providencia stuartii, multidrug resistant. DIAGNOSTICS: Chest x-ray on admission revealed right middle and lower lung zone pneumonia. PHYSICAL EXAMINATION: GENERAL: Fragile chronically ill-appearing elderly man who is in no distress. HEENT: Head atraumatic, normocephalic. Sclerae anicteric. Buccal mucosa dry. NECK: Supple. Tracheostomy present. CHEST: Rise symmetrical. Breath sounds diminished with scattered rhonchi. HEART: S1, S2. ABDOMEN: Soft, bowel sounds present. EXTREMITIES: Contractured. ASSESSMENT: 1. Sepsis with fevers, leukocytosis, bandemia and tachycardia on admission. 2. Pneumonia. 3. Multidrug resistant urinary tract infection. 4. Diarrhea, rule out Clostridium difficile colitis. 5. Chronic encephalopathy. PLAN: We are going to send stool for C. difficile. Add empiric Flagyl. Continue on current antimi crobials for now. Continue vent management as per pulmonary. Dictated By: ALLYSON MCBRIDE LINE WORKER for SHRUTHI ARANDA/NTS Conf#: [id number] DID#: [id number]
--- NOTE | 2016-08-03 13:05 | PN ---
Date/Time of Note Date/Time of Note DATE: 08/03/16 TIME: 12:58 Assessment/Plan VTE Prophylaxis VTE Prophylaxis Intervention: LMWH Lines/Catheters IV C[facility]ter Type (from [facility]): Peripheral IV Urinary Cath still in place: Yes Reason Cath still needed: skin wounds contaminated by urine Assessment/Plan Assessment/Plan 1. Sepsis secondary to underlying urinary tract infection (Providencia Spp) - adjust antibiotics based on sensitivities (defer to ID) and possible healthcare associated pneumonia. The patient has no evidence of any septic shock. The patient will be continued on empiric antibiotics. Infectious disease is following the patient - appreciated - cdiff sent 2. Acute on chronic respiratory failure. Trach dependent. He has a tracheostomy usually on room air. The patient has been noticed to be hypoxic. The patient was started on mechanical ventilation. The patient will be maintained on inhaled bronchodilators. Pulmonology following. 3. Multiple skin wounds. f/u wound care. 4. Anion gap acidosis, most probably secondary to #1. The patient will be adequately hydrated. The patient will be maintained on antibiotics. 5. Dysphagia. Continue tube feedings. Aspiration precautions. Monitor for residuals 6. Fluids, electrolytes, and nutrition. Continue IV hydration. Continue G- tube feedings. 7. DVT prophylaxis. Subcutaneous Lovenox. 8. Gastrointestinal prophylaxis. Histamine 2 receptor blockers. Plan. Continue antibiotics. C diff pending culture. Continue supportive care. Weaning off ventilator as per pulmonology. this progress note took greater than 30 minutes to complete Subjective 24 Hr Interval Summary Free Text/Dictation Patient had no overnight events. Copious amount of loose stools noted near rectum. Spoke to the nurse about the care plan. 15 minutes spent. Exam/Review of Systems Vital Signs Vitals Vital Signs Date Time Temp Pulse Resp B/P Pulse Ox O2 Delivery O2 Flow Rate FiO2 08/03/16 11:47 96 22 99 45 08/03/16 11:45 98.0 120/79 08/02/16 23:03 Mechanical Ventilator Intake and Output 08/02/16 08/02/16 08/03/16 15:00 23:00 07:00 Intake Total 575 ml Output Total 575 ml Balance -575 ml 575 ml Exam Gen Joy: NAD, Alert to self HEENT: NC/AT, PERRLA NECK: supple, trach site C/D/I THORAX: symmetrical, no obvious deformities CV: S1S2, RRR, no M/G/R Lungs: CTAB no W/C/R/R Abd: soft, NT/ND, +BS, no rebound, no guarding, neg HSM EXT: no edema, no ecchymosis, no clubbing, FROM Neuro: difficult to assess 2/2 to mentation Psych: withdrawn Skin: C/D/I Results Result Diagram: 08/03/16 0555 08/03/16 0555 Results 24 hrs Laboratory Tests Test 08/03/16 05:55 White Blood Count 16.6 H Red Blood Count 3.37 L Hemoglobin 10.2 L Hematocrit 31.3 L Mean Corpuscular Volume 92.9 Mean Corpuscular Hemoglobin 30.3 Mean Corpuscular Hemoglobin Concent 32.6 Red Cell Distribution Width 14.7 H Platelet Count 212 # Mean Platelet Volume 11.9 H Neutrophils % 87.6 H Lymphocytes % 6.2 L Monocytes % 3.7 Eosinophils % 1.3 Basophils % 0.2 Nucleated Red Blood Cells % 0.0 Neutrophils # 14.5 H Lymphocytes # 1.0 Monocytes # 0.6 Eosinophils # 0.2 Basophils # 0.0 Nucleated Red Blood Cells # 0.0 Sodium Level 143 Potassium Level 3.5 Chloride Level 112 H Carbon Dioxide Level 23 Anion Gap 12 Blood Urea Nitrogen 13 Creatinine 0.97 Glucose Level 128 Calcium Level 8.5 Phosphorus Level 1.8 L Magnesium Level 2.0 Total Bilirubin 0.2 Direct Bilirubin 0.00 Indirect Bilirubin 0.2 Aspartate Amino Transf (AST/SGOT) 24 Alanine Aminotransferase (ALT/SGPT) 30 Alkaline Phosphatase 94 Total Protein 6.3 # Albumin 3.4 Globulin 2.90 Albumin/Globulin Ratio 1.17 Medications Medications Current Medications Ondansetron HCl (Zofran Inj) 4 mg Q6H PRN IV NAUSEA AND/OR VOMITING Last administered on 08/02/16 00:53; Admin Dose 4 MG; Start 08/01/16 at 11:30 Acetaminophen (Tylenol Tab) 650 mg Q6H PRN GTB PAIN LEVEL 1-3 OR FEVER Last administered on 08/03/16 05:04; Admin Dose 650 MG; Start 08/01/16 at 11:30 Morphine Sulfate (morphine) 2 mg Q4H PRN IV PAIN LEVEL 7-10 Last administered on 08/02/16 20:20; Admin Dose 2 MG; Start 08/01/16 at 11:30 Famotidine 20 mg 20 mg Q12 IV Last administered on 08/03/16 08:24; Admin Dose 20 MG; Start 08/01/16 at 21:00 Piperacillin Sod/ Tazobactam Sod 100 ml @ 100 mls/hr Q6 IVPB Last administered on 08/03/16 05:04; Admin Dose 100 MLS/HR; Start 08/01/16 at 12:30 Sodium Chloride (NS) 1,000 ml @ 75 mls/hr [id number] IV Last administered on 08/03 05:06; Admin Dose 75 MLS/HR; Start 08/01/16 at 12:00 Enoxaparin Sodium (Lovenox) 30 mg DAILY SC Last administered on 08/03/16 08:30 ; Admin Dose 30 MG; Start 08/02/16 at 09:00 Hydralazine HCl 10 mg 10 mg Q6H PRN IV SBP>160; Start 08/01/16 at 12:00 Vancomycin HCl (Vancocin) 250 ml @ 125 mls/hr Q24H IVPB Last administered on 08:24; Admin Dose 125 MLS/HR; Start 08/02/16 at 08:00 Miscellaneous Information (*Rx Drug Level Order Reminder*) 1 ONCE ONCE XX ; Start 08/04/16 at 07:00; Stop 08/04/16 at 07:01 Metronidazole (Flagyl) 500 mg Q8 NGT ; Start 08/03/16 at 14:00 KEVYN FARIAS MD Aug 03, 2016 13:05
[2016-08-03] MEDS ORDERED: SODIUM PHOSPHATE 40 MEQ in SOD CHLORIDE 0.9% 250 ML IVPB ONE (14:00)
[2016-08-03] MEDS: metroNIDAZOLE 500 MG TAB NGT SCH ×2 (14:09→21:17)
[2016-08-04] VITALS (22 sets, daily range): BP systolic 104–146; BP diastolic 70–86; PULSE 108–114; RESP 18–34
[2016-08-04] MEDS: PIPER-TAZO 3.375 GM IV (PMX) 100 ML IVPB SCH ×5 (00:12→23:24)
[2016-08-04] MEDS: ALBUTEROL 18 GM INHALER INH SCH ×4 (02:50→20:31)
[2016-08-04] MEDS: SOD CHLORIDE 0.9% 1,000 ML IV SCH ×2 (02:50→20:13)
[2016-08-04] MEDS: morphine 2 MG INJ IV PRN ×2 (02:50→13:27)
[2016-08-04] MEDS: metroNIDAZOLE 500 MG TAB NGT SCH ×3 (05:48→21:04)
[2016-08-04 07:42] LABS: ADD SCAN DIFF NO
[2016-08-04 07:50] LABS: BASOPHILS % 0.2 % (0.0-2.0); EOSINOPHILS # 0.7 10^3/ul (0.0-0.5); EOSINOPHILS % 4.2 % (0.0-7.0); HEMATOCRIT 30.2 % (42.0-52.0); HEMOGLOBIN 9.9 g/dl (14.0-18.0); LYMPHOCYTES # 1.2 10^3/ul (0.8-2.9); LYMPHOCYTES % 7.8 % (15.0-51.0); MEAN CORPUSCULAR HEMOGLOBIN 30.1 pg (29.0-33.0); MEAN CORPUSCULAR HGB CONC 32.8 g/dl (32.0-37.0); MEAN CORPUSCULAR VOLUME 91.8 fl (82.0-101.0); MEAN PLATELET VOLUME 12.9 fl (7.4-10.4); MONOCYTE # 0.7 10^3/ul (0.3-0.9); MONOCYTES % 4.8 % (0.0-11.0); NEUTROPHIL # 12.7 10^3/ul (1.6-7.5); NEUTROPHILS % 82.2 % (39.0-77.0); PLATELET COUNT 212 10^3/UL (140-415); RED BLOOD COUNT 3.29 10^6/ul (4.70-6.10); RED CELL DISTRIBUTION WIDTH 14.9 % (11.5-14.5); WHITE BLOOD COUNT 15.5 10^3/ul (4.8-10.8)
[2016-08-04 08:20] LABS: CALCIUM 8.5 mg/dl (8.4-10.2); CREATININE 0.91 mg/dl (0.61-1.24)
[2016-08-04] MEDS: VANCOMYCIN 1 GM in NS 250 ML IVPB SCH (08:37)
[2016-08-04] MEDS: FAMOTIDINE 20 MG INJ IV SCH ×2 (08:37→21:00)
[2016-08-04] MEDS: ENOXAPARIN 30 MG/0.3 ML SYG SC SCH (08:43)
--- NOTE | 2016-08-04 12:30 | PN ---
Date/Time of Note Date/Time of Note DATE: 08/04/16 TIME: 12:29 Assessment/Plan VTE Prophylaxis VTE Prophylaxis Intervention: SCD's Lines/Catheters IV Catheter Type (from Nrs): Peripheral IV Urinary Cath still in place: Yes Reason Cath still needed: other (indicate) (chronic) Assessment/Plan Assessment/Plan 70 yo M with chronic encephalopathy, chronic respiratory failure on vent transferred from OSH for sepsis, presumed 2/2 UTI v HCAP 1. Sepsis secondary to underlying urinary tract infection (Providencia Spp) - adjust antibiotics based on sensitivities (defer to ID) and possible healthcare associated pneumonia. The patient has no evidence of any septic shock. The patient will be continued on empiric antibiotics. Infectious disease is following the patient - appreciated - cdiff sent 2. Acute on chronic respiratory failure. Trach dependent. He has a tracheostomy usually on room air. The patient has been noticed to be hypoxic. The patient was started on mechanical ventilation. The patient will be maintained on inhaled bronchodilators. Pulmonology following. 3. Multiple skin wounds. f/u wound care. 4. Anion gap acidosis, most probably secondary to #1. The patient will be adequately hydrated. The patient will be maintained on antibiotics. 5. Dysphagia. Continue tube feedings. Aspiration precautions. Monitor for residuals 6. Fluids, electrolytes, and nutrition. Continue IV hydration. Continue G- tube feedings. 7. DVT prophylaxis. Subcutaneous Lovenox. 8. Gastrointestinal prophylaxis. Histamine 2 receptor blockers. Plan. Continue antibiotics. C diff pending culture. Continue supportive care. Weaning off ventilator as per pulmonology. Abx as per ID Subjective 24 Hr Interval Summary Free Text/Dictation No acute overnight events Exam/Review of Systems Vital Signs Vitals Vital Signs Date Time Temp Pulse Resp B/P Pulse Ox O2 Delivery O2 Flow Rate FiO2 08/04/16 11:46 98.6 119 30 144/83 96 08/04/16 05:42 45 08/02/16 23:03 Mechanical Ventilator Intake and Output 08/03/16 08/03/16 08/04/16 15:00 23:00 07:00 Intake Total 980 ml 1750 ml 850 ml Output Total 500 ml 600 ml 550 ml Balance 480 ml 1150 ml 300 ml Exam nad, laying in bed, +trach lungs clear rrr abd soft no rashes Results Result Diagram: 08/04/16 0700 08/04/16 0700 Results 24 hrs Laboratory Tests Test 08/04/16 07:00 White Blood Count 15.5 H Red Blood Count 3.29 L Hemoglobin 9.9 L Hematocrit 30.2 L Mean Corpuscular Volume 91.8 Mean Corpuscular Hemoglobin 30.1 Mean Corpuscular Hemoglobin Concent 32.8 Red Cell Distribution Width 14.9 H Platelet Count 212 Mean Platelet Volume 12.9 H Neutrophils % 82.2 H Lymphocytes % 7.8 L Monocytes % 4.8 Eosinophils % 4.2 Basophils % 0.2 Nucleated Red Blood Cells % 0.0 Neutrophils # 12.7 H Lymphocytes # 1.2 Monocytes # 0.7 Eosinophils # 0.7 H Basophils # 0.0 Nucleated Red Blood Cells # 0.0 Sodium Level 148 H Potassium Level 3.0 L Chloride Level 114 H Carbon Dioxide Level 22 Anion Gap 15 Blood Urea Nitrogen 10 Creatinine 0.91 Glucose Level 126 Calcium Level 8.5 Vancomycin Level Trough 5.6 L Medications Medications Current Medications Ondansetron HCl (Zofran Inj) 4 mg Q6H PRN IV NAUSEA AND/OR VOMITING Last administered on 08/02/16 00:53; Admin Dose 4 MG; Start 08/01/16 at 11:30 Acetaminophen (Tylenol Tab) 650 mg Q6H PRN GTB PAIN LEVEL 1-3 OR FEVER Last administered on 08/03/16 05:04; Admin Dose 650 MG; Start 08/01/16 at 11:30 Morphine Sulfate (morphine) 2 mg Q4H PRN IV PAIN LEVEL 7-10 Last administered on 08/04/16 02:50; Admin Dose 2 MG; Start 08/01/16 at 11:30 Famotidine 20 mg 20 mg Q12 IV Last administered on 08/04/16 08:37; Admin Dose 20 MG; Start 08/01/16 at 21:00 Piperacillin Sod/ Tazobactam Sod 100 ml @ 100 mls/hr Q6 IVPB Last administered on 08/04/16 05:48; Admin Dose 100 MLS/HR; Start 08/01/16 at 12:30 Sodium Chloride (NS) 1,000 ml @ 75 mls/hr [id number] IV Last administered on 08/04 02:50; Admin Dose 75 MLS/HR; Start 08/01/16 at 12:00 Enoxaparin Sodium (Lovenox) 30 mg DAILY SC Last administered on 08/04/16 08:43 ; Admin Dose 30 MG; Start 08/02/16 at 09:00 Hydralazine HCl 10 mg 10 mg Q6H PRN IV SBP>160; Start 08/01/16 at 12:00 Vancomycin HCl (Vancocin) 250 ml @ 125 mls/hr Q24H IVPB Last administered on 08:37; Admin Dose 125 MLS/HR; Start 08/02/16 at 08:00 Metronidazole (Flagyl) 500 mg Q8 NGT Last administered on 08/04/16 05:48; Admin Dose 500 MG; Start 08/03/16 at 14:00 HARVEY HILLMAN MD Aug 04, 2016 12:30
--- NOTE | 2016-08-04 13:13 | PN ---
DATE: 08/04/2016 SUBJECTIVE: Patient remains unchanged. He is nonverbal, noncommunicative, with a T-max of 100.4, c urrently afebrile. LABORATORIES: WBC 15.5, platelets 212, neutrophils 82.2, BUN 10, creatinine 0.91. MICROBIOLOGY: Urine culture grew Providencia stuartii. Blood cultures negative. Stool for C. diff came back negative. INDWELLINGS: Trach, PEG, Maldonado. ANTIMICROBIALS: 1. Oral Flagyl. 2. Vancomycin. 3. Zosyn. PHYSICAL EXAMINATION: GENERAL: Chronically ill-appearing, elderly man in no distress. HEENT: Head atraumatic, normocephalic. Sclerae anicteric. Buccal mucosa dry. NECK: Supple. Tracheostomy present. CHEST: Rise symmetrical. Breath sounds diminished to bases. HEART: S1, S2. ABDOMEN: Soft, bowel tones present. EXTREMITIES: No cyanosis. Contractures. ASSESSMENT: 1. Sepsis secondary to urinary tract infection and pneumonia. 2. Diarrhea, stool for Clostridium difficile came back negative. 3. Chronic respiratory failure. 4. Dysphagia. 5. Chronic encephalopathy. PLAN: The patient remains stable. He is on appropriate antimicrobials which we will continue. No fevers. Will order chest x-ray in a.m. Await sputum cultures. Dictated By: ALLYSON MCBRIDE RED HAT LINUX ADMINISTRATOR for SHRUTHI ARANDA/JOSE Conf#: [id number] DID#: [id number]
--- NOTE | 2016-08-04 13:59 | CONS ---
Date/Time of Note Date/Time of Note DATE: 08/04/16 TIME: 13:57 Assessment/Plan Assessment/Plan Additional Assessment/Plan Ventilator setting; AC of 12, tidal volume 500, PEEP of 5, 45% FiO2. Assessment recommendations; 1. Patient admitted with UTI and sepsis as well as pneumonia. 2. History of paraplegia. 3. History of dementia. 4. History of tracheostomy and G-tube placement. 5. Patient currently requiring invasive mechanical ventilation due to sepsis. Continue current supportive care. Obtain follow-up chest x-ray. Consultation Date/Type/Reason Admit Date/Time Aug 01, 2016 at 11:32 Initial Consult Date 08/01/16 Type of Consultation: Pulmonary/critical care 24 HR Interval Summary Free Text/Dictation Patient condition remains stable. No untoward events reported. Remains ventilator dependent. Stephani; elderly male, on ventilator via tracheostomy, unresponsive, currently in no distress. Exam/Review of Systems Vital Signs Vitals Vital Signs Date Time Temp Pulse Resp B/P Pulse Ox O2 Delivery O2 Flow Rate FiO2 08/04/16 12:35 113 08/04/16 11:46 98.6 30 144/83 96 08/04/16 07:50 45 08/02/16 23:03 Mechanical Ventilator Intake and Output 08/03/16 08/03/16 08/04/16 15:00 23:00 07:00 Intake Total 980 ml 1750 ml 850 ml Output Total 500 ml 600 ml 550 ml Balance 480 ml 1150 ml 300 ml Exam HEENT exam; supple neck, no JVD. No lymphadenopathy. Midline trachea. No thyromegaly. Tracheostomy in place. Patient multiple carious teeth. Pupils are small bilaterally. Chest examined; diminished but clear vessel. S1-S2 audible, no murmurs. Regular rhythm. Abdomen examination; soft, G-tube in place. Bowel sounds audible. Extremity exam; no peripheral edema. Patient does have contractures involving all 4 extremities. LOSS PREVENTION INVESTIGATOR examination; patient remains very minimally responsive. Results Result Diagram: 08/04/16 0700 08/04/16 0700 Results 24 hrs Laboratory Tests Test 08/04/16 07:00 White Blood Count 15.5 H Red Blood Count 3.29 L Hemoglobin 9.9 L Hematocrit 30.2 L Mean Corpuscular Volume 91.8 Mean Corpuscular Hemoglobin 30.1 Mean Corpuscular Hemoglobin Concent 32.8 Red Cell Distribution Width 14.9 H Platelet Count 212 Mean Platelet Volume 12.9 H Neutrophils % 82.2 H Lymphocytes % 7.8 L Monocytes % 4.8 Eosinophils % 4.2 Basophils % 0.2 Nucleated Red Blood Cells % 0.0 Neutrophils # 12.7 H Lymphocytes # 1.2 Monocytes # 0.7 Eosinophils # 0.7 H Basophils # 0.0 Nucleated Red Blood Cells # 0.0 Sodium Level 148 H Potassium Level 3.0 L Chloride Level 114 H Carbon Dioxide Level 22 Anion Gap 15 Blood Urea Nitrogen 10 Creatinine 0.91 Glucose Level 126 Calcium Level 8.5 Vancomycin Level Trough 5.6 L Medications Medications Current Medications Ondansetron HCl (Zofran Inj) 4 mg Q6H PRN IV NAUSEA AND/OR VOMITING Last administered on 08/02/16 00:53; Admin Dose 4 MG; Start 08/01/16 at 11:30 Acetaminophen (Tylenol Tab) 650 mg Q6H PRN GTB PAIN LEVEL 1-3 OR FEVER Last administered on 08/03/16 05:04; Admin Dose 650 MG; Start 08/01/16 at 11:30 Morphine Sulfate (morphine) 2 mg Q4H PRN IV PAIN LEVEL 7-10 Last administered on 08/04/16 13:27; Admin Dose 2 MG; Start 08/01/16 at 11:30 Famotidine 20 mg 20 mg Q12 IV Last administered on 08/04/16 08:37; Admin Dose 20 MG; Start 08/01/16 at 21:00 Piperacillin Sod/ Tazobactam Sod 100 ml @ 100 mls/hr Q6 IVPB Last administered on 08/04/16 12:38; Admin Dose 100 MLS/HR; Start 08/01/16 at 12:30 Sodium Chloride (NS) 1,000 ml @ 75 mls/hr [id number] IV Last administered on 08/04 02:50; Admin Dose 75 MLS/HR; Start 08/01/16 at 12:00 Enoxaparin Sodium (Lovenox) 30 mg DAILY SC Last administered on 08/04/16 08:43 ; Admin Dose 30 MG; Start 08/02/16 at 09:00 Hydralazine HCl 10 mg 10 mg Q6H PRN IV SBP>160; Start 08/01/16 at 12:00 Vancomycin HCl (Vancocin) 250 ml @ 125 mls/hr Q24H IVPB Last administered on 08:37; Admin Dose 125 MLS/HR; Start 08/02/16 at 08:00 Metronidazole (Flagyl) 500 mg Q8 NGT Last administered on 08/04/16 13:27; Admin Dose 500 MG; Start 08/03/16 at 14:00 SAMMY AGUSTIN Aug 04, 2016 13:59
[2016-08-04] MEDS ORDERED: POTASSIUM CHLORIDE 20 MEQ POWDER FOR ORAL SOLN GTB ONE (14:30)
--- NOTE | 2016-08-04 19:10 | RADRPT ---
PROCEDURE: XR Chest. CLINICAL INDICATION: Pneumonia. TECHNIQUE: Single frontal view of the chest. COMPARISON: 10/26/2015. FINDINGS: The cardiomediastinal silhouette is within normal limits. Tracheostomy tube at midline. New dense r ight lung air space disease, greater in the right upper lobe. The left lung remain substantially cl ear. No signs of pleural fluid or pneumothorax are seen. The osseous structures and soft tissues ar e unremarkable. IMPRESSION: New dense right lung pneumonia, greater in the right upper lobe. RPTAT: [facility] Physician Abdon Date Time Electronically viewed and signed by Physician Abdon on 08/04/2016 19:10 RS/
[2016-08-04] MEDS: VANCOMYCIN 750 MG in SOD CHLORIDE 0.9% 150 ML IVPB SCH (20:57)
[2016-08-05] VITALS (24 sets, daily range): BP systolic 125–145; BP diastolic 72–89; PULSE 104–120; RESP 20–38
[2016-08-05] MEDS: ALBUTEROL 18 GM INHALER INH SCH ×4 (02:25→19:49)
[2016-08-05] MEDS: PIPER-TAZO 3.375 GM IV (PMX) 100 ML IVPB SCH ×4 (05:14→23:51)
[2016-08-05] MEDS: metroNIDAZOLE 500 MG TAB NGT SCH ×3 (05:15→21:31)
[2016-08-05 06:50] LABS: ADD SCAN DIFF NO
[2016-08-05 07:01] LABS: HEMOGLOBIN 10.2 g/dl (14.0-18.0); MEAN CORPUSCULAR HEMOGLOBIN 29.8 pg (29.0-33.0); MEAN CORPUSCULAR HGB CONC 32.9 g/dl (32.0-37.0); MEAN CORPUSCULAR VOLUME 90.6 fl (82.0-101.0); PLATELET COUNT 265 10^3/UL (140-415); RED BLOOD COUNT 3.42 10^6/ul (4.70-6.10); WHITE BLOOD COUNT 14.9 10^3/ul (4.8-10.8)
[2016-08-05 07:02] LABS: BASOPHILS % 0.3 % (0.0-2.0); EOSINOPHILS # 1.4 10^3/ul (0.0-0.5); EOSINOPHILS % 9.2 % (0.0-7.0); LYMPHOCYTES # 1.3 10^3/ul (0.8-2.9); LYMPHOCYTES % 8.9 % (15.0-51.0); MEAN PLATELET VOLUME 12.8 fl (7.4-10.4); MONOCYTE # 0.8 10^3/ul (0.3-0.9); MONOCYTES % 5.5 % (0.0-11.0); NEUTROPHIL # 11.3 10^3/ul (1.6-7.5); NEUTROPHILS % 75.5 % (39.0-77.0)
[2016-08-05] MEDS: FAMOTIDINE 20 MG INJ IV SCH ×2 (08:23→20:42)
[2016-08-05] MEDS: VANCOMYCIN 750 MG in SOD CHLORIDE 0.9% 150 ML IVPB SCH ×2 (08:23→20:42)
[2016-08-05] MEDS: ENOXAPARIN 30 MG/0.3 ML SYG SC SCH (08:24)
[2016-08-05] MEDS: SOD CHLORIDE 0.9% 1,000 ML IV SCH ×2 (08:26→17:12)
[2016-08-05 09:27] LABS: CALCIUM 8.5 mg/dl (8.4-10.2); CREATININE 0.89 mg/dl (0.61-1.24); POTASSIUM 3.3 mmol/L (3.5-5.1)
--- NOTE | 2016-08-05 09:29 | PN ---
Date/Time of Note Date/Time of Note DATE: 08/05/16 TIME: 09:27 Assessment/Plan VTE Prophylaxis VTE Prophylaxis Intervention: LMWH Lines/Catheters IV C[facility] Type (from [facility]): Peripheral IV Urinary Cath still in place: Yes Reason Cath still needed: other (indicate) Assessment/Plan Assessment/Plan 70 yo M with chronic encephalopathy, chronic respiratory failure on vent transferred from OSH for sepsis, presumed 2/2 UTI v HCAP 1. Sepsis secondary to underlying urinary tract infection (Providencia Spp) - adjust antibiotics based on sensitivities (defer to ID) and possible healthcare associated pneumonia. The patient has no evidence of any septic shock. The patient will be continued on empiric antibiotics. Infectious disease is following the patient - appreciated - cdiff sent 2. Acute on chronic respiratory failure. Trach dependent. He has a tracheostomy usually on room air. The patient was started on mechanical ventilation. The patient will be maintained on inhaled bronchodilators. Pulmonology following. 3. Multiple skin wounds. f/u wound care. 4. ? prev CVA 5. chronic Dysphagia. Continue tube feedings. Aspiration precautions. Monitor for residuals 6. Fluids, electrolytes, and nutrition. Continue IV hydration. Continue G- tube feedings. 7. DVT prophylaxis. Subcutaneous Lovenox. 8. Gastrointestinal prophylaxis. Histamine 2 receptor blockers. Plan. Continue antibiotics per ID, final culture results still pending Pulmonary managing vent, continue weaning as tolerated Subjective 24 Hr Interval Summary Subjective hx not possible: pt non-verbal Exam/Review of Systems Vital Signs Vitals Vital Signs Date Time Temp Pulse Resp B/P Pulse Ox O2 Delivery O2 Flow Rate FiO2 08/05/16 07:30 97.4 121 34 141/81 95 08/05/16 06:30 45 08/02/16 23:03 Mechanical Ventilator Intake and Output 08/04/16 08/04/16 08/05/16 15:00 23:00 07:00 Intake Total 350 ml 1730 ml 1015 ml Output Total 450 ml 800 ml Balance 350 ml 1280 ml 215 ml Exam Gen Joy: NAD, Alert , no oriented HEENT: NC/AT, PERRLA / facial assymetry, ?prev cva NECK: supple, trach to vent CV: S1S2, RRR, no M/G/R Lungs: CTAB + diminished bs Abd: soft, NT/ND, +BS, EXT: ?chronic LE contraction Neuro: difficult to assess 2/2 to mentation Psych: unable to assess Results Result Diagram: 08/05/16 0601 08/04/16 0700 Results 24 hrs Laboratory Tests Test 08/05/16 06:01 White Blood Count 14.9 H Red Blood Count 3.42 L Hemoglobin 10.2 L Hematocrit 31.0 L Mean Corpuscular Volume 90.6 Mean Corpuscular Hemoglobin 29.8 Mean Corpuscular Hemoglobin Concent 32.9 Red Cell Distribution Width 15.0 H Platelet Count 265 # Mean Platelet Volume 12.8 H Neutrophils % 75.5 Lymphocytes % 8.9 L Monocytes % 5.5 Eosinophils % 9.2 H Basophils % 0.3 Nucleated Red Blood Cells % 0.0 Neutrophils # 11.3 H Lymphocytes # 1.3 Monocytes # 0.8 Eosinophils # 1.4 H Basophils # 0.0 Nucleated Red Blood Cells # 0.0 Medications Medications Current Medications Ondansetron HCl (Zofran Inj) 4 mg Q6H PRN IV NAUSEA AND/OR VOMITING Last administered on 08/02/16 00:53; Admin Dose 4 MG; Start 08/01/16 at 11:30 Acetaminophen (Tylenol Tab) 650 mg Q6H PRN GTB PAIN LEVEL 1-3 OR FEVER Last administered on 08/03/16 05:04; Admin Dose 650 MG; Start 08/01/16 at 11:30 Morphine Sulfate (morphine) 2 mg Q4H PRN IV PAIN LEVEL 7-10 Last administered on 08/04/16 13:27; Admin Dose 2 MG; Start 08/01/16 at 11:30 Famotidine 20 mg 20 mg Q12 IV Last administered on 08/05/16 08:23; Admin Dose 20 MG; Start 08/01/16 at 21:00 Piperacillin Sod/ Tazobactam Sod 100 ml @ 100 mls/hr Q6 IVPB Last administered on 08/05/16 05:14; Admin Dose 100 MLS/HR; Start 08/01/16 at 12:30 Sodium Chloride (NS) 1,000 ml @ 75 mls/hr [id number] IV Last administered on 08/04 20:13; Admin Dose 75 MLS/HR; Start 08/01/16 at 12:00 Enoxaparin Sodium (Lovenox) 30 mg DAILY SC Last administered on 08/05/16 08:24 ; Admin Dose 30 MG; Start 08/02/16 at 09:00 Hydralazine HCl (Apresoline) 10 mg Q6H PRN IV SBP>160; Start 08/01/16 at 12:00 Metronidazole 500 mg 500 mg Q8 NGT Last administered on 08/05/16 05:15; Admin Dose 500 MG; Start 08/03/16 at 14:00 Vancomycin HCl/ Sodium Chloride (Vancocin/NS) 150 ml @ 75 mls/hr Q12H IVPB Last administered on 08/05/16 08:23; Admin Dose 75 MLS/HR; Start 08/04/16 at 20 :00 POLO SEVILLA Aug 05, 2016 09:29
[2016-08-05] MEDS: morphine 2 MG INJ IV PRN ×2 (10:22→23:13)
--- NOTE | 2016-08-05 14:22 | CONS ---
Date/Time of Note Date/Time of Note DATE: 08/05/16 TIME: 14:19 Assessment/Plan Assessment/Plan Additional Assessment/Plan Chest x-ray was reviewed from yesterday afternoon which is showing extensive right-sided infiltrative changes. Ventilator settings; assist control of 12, tidal volume 400, PEEP of 5, 45% FiO2. Assessment recommendations; 1. Patient admitted for pneumonia currently on appropriate antibiotic regimen. 2. Respiratory failure. Not requiring invasive mechanical ventilation. 3. Advanced dementia. 4. History of paraplegia. Continue current treatment. Consultation Date/Type/Reason Admit Date/Time Aug 01, 2016 at 11:32 Initial Consult Date 08/01/16 Type of Consultation: Pulmonary/critical care 24 HR Interval Summary Free Text/Dictation Patient condition remains stable. Remains essentially unresponsive. Has remained hemodynamically stable. General examination; elderly male, on ventilator via tracheostomy currently in no distress unresponsive. Exam/Review of Systems Vital Signs Vitals Vital Signs Date Time Temp Pulse Resp B/P Pulse Ox O2 Delivery O2 Flow Rate FiO2 08/05/16 12:30 119 08/05/16 11:09 98.1 38 135/85 95 08/05/16 09:30 40 08/02/16 23:03 Mechanical Ventilator Intake and Output 08/04/16 08/04/16 08/05/16 15:00 23:00 07:00 Intake Total 350 ml 1730 ml 1015 ml Output Total 450 ml 800 ml Balance 350 ml 1280 ml 215 ml Exam HEENT examination; supple neck, no JVD. No lymphadenopathy. Midline trachea. No thyromegaly. Tracheostomy in place. Patient multiple carious teeth. Chest examination; diminished breath sounds bilaterally. S1-S2 audible, no murmurs. Regular rhythm. Abdomen examination; soft, no organomegaly. Bowel sounds audible. G-tube in place. Extremity examination; no peripheral edema. Patient has contractures involving all 4 extremities. ASSISTANT BASKETBALL COACH examination; patient remains essentially unresponsive. Results Result Diagram: 08/05/16 0601 08/05/16 0601 Results 24 hrs Laboratory Tests Test 08/05/16 06:01 White Blood Count 14.9 H Red Blood Count 3.42 L Hemoglobin 10.2 L Hematocrit 31.0 L Mean Corpuscular Volume 90.6 Mean Corpuscular Hemoglobin 29.8 Mean Corpuscular Hemoglobin Concent 32.9 Red Cell Distribution Width 15.0 H Platelet Count 265 # Mean Platelet Volume 12.8 H Neutrophils % 75.5 Lymphocytes % 8.9 L Monocytes % 5.5 Eosinophils % 9.2 H Basophils % 0.3 Nucleated Red Blood Cells % 0.0 Neutrophils # 11.3 H Lymphocytes # 1.3 Monocytes # 0.8 Eosinophils # 1.4 H Basophils # 0.0 Nucleated Red Blood Cells # 0.0 Sodium Level 146 H Potassium Level 3.3 L Chloride Level 115 H Carbon Dioxide Level 23 Anion Gap 11 Blood Urea Nitrogen 11 Creatinine 0.89 Glucose Level 104 Calcium Level 8.5 Medications Medications Current Medications Ondansetron HCl (Zofran Inj) 4 mg Q6H PRN IV NAUSEA AND/OR VOMITING Last administered on 08/02/16 00:53; Admin Dose 4 MG; Start 08/01/16 at 11:30 Acetaminophen (Tylenol Tab) 650 mg Q6H PRN GTB PAIN LEVEL 1-3 OR FEVER Last administered on 08/03/16 05:04; Admin Dose 650 MG; Start 08/01/16 at 11:30 Morphine Sulfate (morphine) 2 mg Q4H PRN IV PAIN LEVEL 7-10 Last administered on 08/05/16 10:22; Admin Dose 2 MG; Start 08/01/16 at 11:30 Famotidine 20 mg 20 mg Q12 IV Last administered on 08/05/16 08:23; Admin Dose 20 MG; Start 08/01/16 at 21:00 Piperacillin Sod/ Tazobactam Sod 100 ml @ 100 mls/hr Q6 IVPB Last administered on 08/05/16 11:23; Admin Dose 100 MLS/HR; Start 08/01/16 at 12:30 Sodium Chloride (NS) 1,000 ml @ 75 mls/hr [id number] IV Last administered on 08/04 20:13; Admin Dose 75 MLS/HR; Start 08/01/16 at 12:00 Enoxaparin Sodium (Lovenox) 30 mg DAILY SC Last administered on 08/05/16 08:24 ; Admin Dose 30 MG; Start 08/02/16 at 09:00 Hydralazine HCl (Apresoline) 10 mg Q6H PRN IV SBP>160; Start 08/01/16 at 12:00 Metronidazole 500 mg 500 mg Q8 NGT Last administered on 08/05/16 13:24; Admin Dose 500 MG; Start 08/03/16 at 14:00 Vancomycin HCl/ Sodium Chloride (Vancocin/NS) 150 ml @ 75 mls/hr Q12H IVPB Last administered on 08/05/16 08:23; Admin Dose 75 MLS/HR; Start 08/04/16 at 20 :00 Miscellaneous Information (*Rx Drug Level Order Reminder*) 1 ONCE ONCE XX ; Start 08/06/16 at 07:00; Stop 08/06/16 at 07:01 SAMMY AGUSTIN Aug 05, 2016 14:22
--- NOTE | 2016-08-05 14:49 | CONS ---
Date/Time of Note Date/Time of Note DATE: 08/05/16 TIME: 14:48 Assessment/Plan Assessment/Plan Chief Complaint/Hosp Course SUBJECTIVE: Patient remains unchanged. He is nonverbal, noncommunicative, tachycardic,afebrile. MICROBIOLOGY: Urine culture grew Providencia stuartii. Blood cultures negative. Stool for C. diff came back negative. INDWELLINGS: Trach, PEG, Maldonado. ANTIMICROBIALS: 1. Oral Flagyl. 2. Vancomycin. 3. Zosyn. PHYSICAL EXAMINATION: GENERAL: Chronically ill-appearing, elderly man in no distress. HEENT: Head atraumatic, normocephalic. Sclerae anicteric. Buccal mucosa dry. NECK: Supple. Tracheostomy present. CHEST: Rise symmetrical. Breath sounds diminished to bases. HEART: S1, S2. ABDOMEN: Soft, bowel tones present. EXTREMITIES: No cyanosis. Contractures. ASSESSMENT: 1. Sepsis secondary to urinary tract infection and pneumonia. 2. Diarrhea, stool for Clostridium difficile came back negative. 3. Chronic respiratory failure. 4. Dysphagia. 5. Chronic encephalopathy. PLAN: The patient remains stable. He is on appropriate antimicrobials, pending sputum cultures. staff Problems: Consultation Date/Type/Reason Admit Date/Time Aug 01, 2016 at 11:32 Initial Consult Date 08/01/16 Type of Consultation: ID Exam/Review of Systems Vital Signs Vitals Vital Signs Date Time Temp Pulse Resp B/P Pulse Ox O2 Delivery O2 Flow Rate FiO2 08/05/16 12:30 119 08/05/16 11:30 21 96 45 08/05/16 11:09 98.1 135/85 08/02/16 23:03 Mechanical Ventilator Intake and Output 08/04/16 08/04/16 08/05/16 15:00 23:00 07:00 Intake Total 350 ml 1730 ml 1015 ml Output Total 450 ml 800 ml Balance 350 ml 1280 ml 215 ml Results Result Diagram: 08/05/16 0601 08/05/16 0601 Results 24 hrs Laboratory Tests Test 08/05/16 06:01 White Blood Count 14.9 H Red Blood Count 3.42 L Hemoglobin 10.2 L Hematocrit 31.0 L Mean Corpuscular Volume 90.6 Mean Corpuscular Hemoglobin 29.8 Mean Corpuscular Hemoglobin Concent 32.9 Red Cell Distribution Width 15.0 H Platelet Count 265 # Mean Platelet Volume 12.8 H Neutrophils % 75.5 Lymphocytes % 8.9 L Monocytes % 5.5 Eosinophils % 9.2 H Basophils % 0.3 Nucleated Red Blood Cells % 0.0 Neutrophils # 11.3 H Lymphocytes # 1.3 Monocytes # 0.8 Eosinophils # 1.4 H Basophils # 0.0 Nucleated Red Blood Cells # 0.0 Sodium Level 146 H Potassium Level 3.3 L Chloride Level 115 H Carbon Dioxide Level 23 Anion Gap 11 Blood Urea Nitrogen 11 Creatinine 0.89 Glucose Level 104 Calcium Level 8.5 Medications Medications Current Medications Ondansetron HCl (Zofran Inj) 4 mg Q6H PRN IV NAUSEA AND/OR VOMITING Last administered on 08/02/16 00:53; Admin Dose 4 MG; Start 08/01/16 at 11:30 Acetaminophen (Tylenol Tab) 650 mg Q6H PRN GTB PAIN LEVEL 1-3 OR FEVER Last administered on 08/03/16 05:04; Admin Dose 650 MG; Start 08/01/16 at 11:30 Morphine Sulfate (morphine) 2 mg Q4H PRN IV PAIN LEVEL 7-10 Last administered on 08/05/16 10:22; Admin Dose 2 MG; Start 08/01/16 at 11:30 Famotidine 20 mg 20 mg Q12 IV Last administered on 08/05/16 08:23; Admin Dose 20 MG; Start 08/01/16 at 21:00 Piperacillin Sod/ Tazobactam Sod 100 ml @ 100 mls/hr Q6 IVPB Last administered on 08/05/16 11:23; Admin Dose 100 MLS/HR; Start 08/01/16 at 12:30 Sodium Chloride (NS) 1,000 ml @ 75 mls/hr [id number] IV Last administered on 08/04 20:13; Admin Dose 75 MLS/HR; Start 08/01/16 at 12:00 Enoxaparin Sodium (Lovenox) 30 mg DAILY SC Last administered on 08/05/16 08:24 ; Admin Dose 30 MG; Start 08/02/16 at 09:00 Hydralazine HCl (Apresoline) 10 mg Q6H PRN IV SBP>160; Start 08/01/16 at 12:00 Metronidazole 500 mg 500 mg Q8 NGT Last administered on 08/05/16 13:24; Admin Dose 500 MG; Start 08/03/16 at 14:00 Vancomycin HCl/ Sodium Chloride (Vancocin/NS) 150 ml @ 75 mls/hr Q12H IVPB Last administered on 08/05/16 08:23; Admin Dose 75 MLS/HR; Start 08/04/16 at 20 :00 Miscellaneous Information (*Rx Drug Level Order Reminder*) 1 ONCE ONCE XX ; Start 08/06/16 at 07:00; Stop 08/06/16 at 07:01 ALLYSON MCBRIDE NP Aug 05, 2016 14:49
[2016-08-05] MEDS ORDERED: POTASSIUM CHLORIDE 20 MEQ POWDER FOR ORAL SOLN GTB ONE (15:30)
[2016-08-06] VITALS (25 sets, daily range): BP systolic 125–187; BP diastolic 61–93; PULSE 113–126; RESP 18–37
[2016-08-06] MEDS: LORAZEPAM 2 MG INJ IV PRN ×3 (01:42→22:33)
[2016-08-06] MEDS: ALBUTEROL 18 GM INHALER INH SCH ×4 (02:16→19:32)
[2016-08-06] MEDS: morphine 2 MG INJ IV PRN ×2 (04:51→09:23)
[2016-08-06] MEDS: metroNIDAZOLE 500 MG TAB NGT SCH (05:34)
[2016-08-06] MEDS: PIPER-TAZO 3.375 GM IV (PMX) 100 ML IVPB SCH ×2 (05:34→12:18)
[2016-08-06 08:03] LABS: ADD SCAN DIFF NO
[2016-08-06 08:04] LABS: BASOPHILS % 0.2 % (0.0-2.0); EOSINOPHILS # 1.5 10^3/ul (0.0-0.5); EOSINOPHILS % 9.4 % (0.0-7.0); HEMATOCRIT 31.9 % (42.0-52.0); HEMOGLOBIN 10.1 g/dl (14.0-18.0); LYMPHOCYTES # 1.3 10^3/ul (0.8-2.9); LYMPHOCYTES % 8.4 % (15.0-51.0); MEAN CORPUSCULAR HEMOGLOBIN 29.1 pg (29.0-33.0); MEAN CORPUSCULAR HGB CONC 31.7 g/dl (32.0-37.0); MEAN CORPUSCULAR VOLUME 91.9 fl (82.0-101.0); MEAN PLATELET VOLUME 11.7 fl (7.4-10.4); MONOCYTE # 1.1 10^3/ul (0.3-0.9); MONOCYTES % 6.9 % (0.0-11.0); NEUTROPHIL # 11.8 10^3/ul (1.6-7.5); NEUTROPHILS % 74.2 % (39.0-77.0); PLATELET COUNT 221 10^3/UL (140-415); RED BLOOD COUNT 3.47 10^6/ul (4.70-6.10); RED CELL DISTRIBUTION WIDTH 15.5 % (11.5-14.5); WHITE BLOOD COUNT 15.9 10^3/ul (4.8-10.8)
[2016-08-06] MEDS: FAMOTIDINE 20 MG INJ IV SCH ×2 (08:14→20:10)
[2016-08-06] MEDS: hydrALAzine 20 MG INJ IV PRN (08:15)
[2016-08-06] MEDS: ENOXAPARIN 30 MG/0.3 ML SYG SC SCH (08:20)
[2016-08-06 08:38] LABS: CALCIUM 8.5 mg/dl (8.4-10.2); CREATININE 0.88 mg/dl (0.61-1.24); POTASSIUM 4.1 mmol/L (3.5-5.1)
[2016-08-06] MEDS ORDERED: VANCOMYCIN 1 GM in NS 250 ML IVPB SCH (10:00)
--- NOTE | 2016-08-06 10:58 | PN ---
Date/Time of Note Date/Time of Note DATE: 08/06/16 TIME: 10:51 Assessment/Plan VTE Prophylaxis VTE Prophylaxis Intervention: LMWH Lines/Catheters IV Catheter Type (from [facility]): Peripheral IV Urinary Cath still in place: Yes Reason Cath still needed: other (indicate) (chronicall intubated) Assessment/Plan Assessment/Plan 70 yo M with chronic encephalopathy, chronic respiratory failure on vent transferred from OSH for sepsis, presumed 2/2 UTI v HCAP 1. Sepsis secondary to underlying urinary tract infection and Polymicrobial healthcare associated pneumonia. 2. Acute on chronic respiratory failure. Trach dependent. He has a tracheostomy usually on room air. The patient was started on mechanical ventilation. The patient will be maintained on inhaled bronchodilators. Pulmonology following. 3. Multiple skin wounds. f/u wound care. 4. Possible prev CVA causing baseline encephalopathy 5. Chronic Dysphagia. Continue tube feedings. Aspiration precautions. Monitor for residuals 6. Tachycardia Plan. * Patient has had tachycardia since admission, thought to be secondary to sepsis , however not improving with aggressive antibiotic therapy. Will rule out cardiac event, obtain 2D echo,, and a CT angiogram rule out a PE, and start patient on low-dose beta blockers. Will consider cardiology consult if initial measures fail. Patient has been gently hydrated since admission, may consider more aggressive rehydration as well. * Fluids, electrolytes, and nutrition. Continue IV hydration. Continue G- tube feedings. * DVT prophylaxis. Subcutaneous Lovenox. * Gastrointestinal prophylaxis. Histamine 2 receptor blockers. Subjective 24 Hr Interval Summary Free Text/Dictation Persistent tachycardia noted Patient seen and examined. remains vent dependent via trach Subjective hx not possible: pt non-verbal Exam/Review of Systems Vital Signs Vitals Vital Signs Date Time Temp Pulse Resp B/P Pulse Ox O2 Delivery O2 Flow Rate FiO2 08/06/16 10:34 126 20 125/69 08/06/16 09:30 96 45 08/06/16 07:34 98.3 08/02/16 23:03 Mechanical Ventilator Intake and Output 08/05/16 08/05/16 08/06/16 15:00 23:00 07:00 Intake Total 2125 ml 250 ml Output Total 1000 ml Balance 1125 ml 250 ml Exam Gen Joy: NAD, Alert , no oriented HEENT: NC/AT, PERRLA / facial assymetry, ?prev cva NECK: supple, trach to vent CV: S1S2, RRR, no M/G/R Lungs: CTAB + diminished bs Abd: soft, NT/ND, +BS, EXT: ?chronic LE contraction Neuro: difficult to assess 2/2 to mentation Psych: unable to assess Results Result Diagram: 08/06/1672908/06/16729 Results 24 hrs Laboratory Tests Test 08/06/16 07:30 White Blood Count 15.9 H Red Blood Count 3.47 L Hemoglobin 10.1 L Hematocrit 31.9 L Mean Corpuscular Volume 91.9 Mean Corpuscular Hemoglobin 29.1 Mean Corpuscular Hemoglobin Concent 31.7 L Red Cell Distribution Width 15.5 H Platelet Count 221 Mean Platelet Volume 11.7 H Neutrophils % 74.2 Lymphocytes % 8.4 L Monocytes % 6.9 Eosinophils % 9.4 H Basophils % 0.2 Nucleated Red Blood Cells % 0.0 Neutrophils # 11.8 H Lymphocytes # 1.3 Monocytes # 1.1 H Eosinophils # 1.5 H Basophils # 0.0 Nucleated Red Blood Cells # 0.0 Sodium Level 143 Potassium Level 4.1 Chloride Level 113 H Carbon Dioxide Level 21 Anion Gap 13 Blood Urea Nitrogen 10 Creatinine 0.88 Glucose Level 108 Calcium Level 8.5 Vancomycin Level Trough 10.8 Medications Medications Current Medications Ondansetron HCl (Zofran Inj) 4 mg Q6H PRN IV NAUSEA AND/OR VOMITING Last administered on 08/02/16 00:53; Admin Dose 4 MG; Start 08/01/16 at 11:30 Acetaminophen (Tylenol Tab) 650 mg Q6H PRN GTB PAIN LEVEL 1-3 OR FEVER Last administered on 08/03/16 05:04; Admin Dose 650 MG; Start 08/01/16 at 11:30 Morphine Sulfate (morphine) 2 mg Q4H PRN IV PAIN LEVEL 7-10 Last administered on 08/06/16 09:23; Admin Dose 2 MG; Start 08/01/16 at 11:30 Famotidine 20 mg 20 mg Q12 IV Last administered on 08/06/16 08:14; Admin Dose 20 MG; Start 08/01/16 at 21:00 Piperacillin Sod/ Tazobactam Sod 100 ml @ 100 mls/hr Q6 IVPB Last administered on 08/06/16 05:34; Admin Dose 100 MLS/HR; Start 08/01/16 at 12:30 Sodium Chloride (NS) 1,000 ml @ 75 mls/hr [id number] IV Last administered on 08/05 17:12; Admin Dose 75 MLS/HR; Start 08/01/16 at 12:00 Enoxaparin Sodium (Lovenox) 30 mg DAILY SC Last administered on 08/06/16 08:20 ; Admin Dose 30 MG; Start 08/02/16 at 09:00 Hydralazine HCl (Apresoline) 10 mg Q6H PRN IV SBP>160 Last administered on 08/06 08:15; Admin Dose 10 MG; Start 08/01/16 at 12:00 Metronidazole (Flagyl) 500 mg Q8 NGT Last administered on 08/06/16 05:34; Admin Dose 500 MG; Start 08/03/16 at 14:00 Lorazepam 1 mg 1 mg Q6H PRN IV AGITATION Last administered on 08/06/16 08:15; Admin Dose 1 MG; Start 08/06/16 at 01:30 Vancomycin HCl (Vancocin) 250 ml @ 125 mls/hr Q12H IVPB Last administered on 10:29; Admin Dose 125 MLS/HR; Start 08/06/16 at 10:00 POLO SEVILLA Aug 06, 2016 10:58
[2016-08-06] MEDS ORDERED: METOPROLOL 25 MG TAB PO SCH (11:00)
[2016-08-06] MEDS: SOD CHLORIDE 0.9% 1,000 ML IV SCH (12:18)
--- NOTE | 2016-08-06 12:36 | CONS ---
Date/Time of Note Date/Time of Note DATE: 08/06/16 TIME: 12:33 Assessment/Plan Assessment/Plan Additional Assessment/Plan Ventilator setting; AC of 12, tidal volume 500, PEEP of 5, 45% FiO2. Assessment recommendations; 1. Patient admitted for pneumonia and sepsis currently on appropriate antibiotic regimen. Multiple organisms isolated in sputum. 2. History of paraplegia with a history of respiratory failure, patient was maintained on tracheal T piece at detention now requiring invasive mechanical ventilation. 3. Advanced dementia. Continue current treatment. Consultation Date/Type/Reason Admit Date/Time Aug 01, 2016 at 11:32 Initial Consult Date 08/01/16 Type of Consultation: Pulmonary 24 HR Interval Summary Free Text/Dictation Patient condition remains unchanged. Remains minimally responsive. Has remained hemodynamically stable. General exam; elderly male, on ventilator via tracheostomy currently in no distress. Patient moving left upper extremity spontaneously. Exam/Review of Systems Vital Signs Vitals Vital Signs Date Time Temp Pulse Resp B/P Pulse Ox O2 Delivery O2 Flow Rate FiO2 08/06/16 11:28 98.2 117 29 134/81 97 08/06/16 11:10 45 08/02/16 23:03 Mechanical Ventilator Intake and Output 08/05/16 08/05/16 08/06/16 15:00 23:00 07:00 Intake Total 2125 ml 250 ml Output Total 1000 ml Balance 1125 ml 250 ml Exam HEENT exam; supple neck, no JVD, no lymphadenopathy. Tracheostomy in place with clean insertion site. Patient has a multiple carious teeth. Chest exam; diminished but clear breath sounds. S1-S2 audible, no murmurs. Regular rhythm. Abdomen examination; soft, G-tube in place. No organomegaly. Bowel sounds audible. Extremity exam; no peripheral edema. Patient does have contractures involving both lower and right upper extremity. PROPELLER ENGINEER examination; patient is awake but does not follow any commands. Results Result Diagram: 08/06/16 0730 08/06/16 0730 Results 24 hrs Laboratory Tests Test 08/06/16 07:30 White Blood Count 15.9 H Red Blood Count 3.47 L Hemoglobin 10.1 L Hematocrit 31.9 L Mean Corpuscular Volume 91.9 Mean Corpuscular Hemoglobin 29.1 Mean Corpuscular Hemoglobin Concent 31.7 L Red Cell Distribution Width 15.5 H Platelet Count 221 Mean Platelet Volume 11.7 H Neutrophils % 74.2 Lymphocytes % 8.4 L Monocytes % 6.9 Eosinophils % 9.4 H Basophils % 0.2 Nucleated Red Blood Cells % 0.0 Neutrophils # 11.8 H Lymphocytes # 1.3 Monocytes # 1.1 H Eosinophils # 1.5 H Basophils # 0.0 Nucleated Red Blood Cells # 0.0 Sodium Level 143 Potassium Level 4.1 Chloride Level 113 H Carbon Dioxide Level 21 Anion Gap 13 Blood Urea Nitrogen 10 Creatinine 0.88 Glucose Level 108 Calcium Level 8.5 Vancomycin Level Trough 10.8 Medications Medications Current Medications Ondansetron HCl (Zofran Inj) 4 mg Q6H PRN IV NAUSEA AND/OR VOMITING Last administered on 08/02/16 00:53; Admin Dose 4 MG; Start 08/01/16 at 11:30 Acetaminophen (Tylenol Tab) 650 mg Q6H PRN GTB PAIN LEVEL 1-3 OR FEVER Last administered on 08/03/16 05:04; Admin Dose 650 MG; Start 08/01/16 at 11:30 Morphine Sulfate (morphine) 2 mg Q4H PRN IV PAIN LEVEL 7-10 Last administered on 08/06/16 09:23; Admin Dose 2 MG; Start 08/01/16 at 11:30 Famotidine 20 mg 20 mg Q12 IV Last administered on 08/06/16 08:14; Admin Dose 20 MG; Start 08/01/16 at 21:00 Piperacillin Sod/ Tazobactam Sod 100 ml @ 100 mls/hr Q6 IVPB Last administered on 08/06/16 12:18; Admin Dose 100 MLS/HR; Start 08/01/16 at 12:30 Sodium Chloride (NS) 1,000 ml @ 75 mls/hr [id number] IV Last administered on 08/06 12:18; Admin Dose 75 MLS/HR; Start 08/01/16 at 12:00 Enoxaparin Sodium (Lovenox) 30 mg DAILY SC Last administered on 08/06/16 08:20 ; Admin Dose 30 MG; Start 08/02/16 at 09:00 Hydralazine HCl (Apresoline) 10 mg Q6H PRN IV SBP>160 Last administered on 08/06 08:15; Admin Dose 10 MG; Start 08/01/16 at 12:00 Metronidazole (Flagyl) 500 mg Q8 NGT Last administered on 08/06/16 05:34; Admin Dose 500 MG; Start 08/03/16 at 14:00 Lorazepam 1 mg 1 mg Q6H PRN IV AGITATION Last administered on 08/06/16 08:15; Admin Dose 1 MG; Start 08/06/16 at 01:30 Vancomycin HCl (Vancocin) 250 ml @ 125 mls/hr Q12H IVPB Last administered on 10:29; Admin Dose 125 MLS/HR; Start 08/06/16 at 10:00 Metoprolol Tartrate (Lopressor) 25 mg BID PO Last administered on 08/06/16 12: 18; Admin Dose 25 MG; Start 08/06/16 at 11:00 SAMMY AGUSTIN Aug 06, 2016 12:36
[2016-08-06 13:35] LABS: CREATINE KINASE 74 IU/L (23-200)
--- NOTE | 2016-08-06 13:44 | RADRPT ---
Echocardiogram Report Patient Name: MANOHAR ALDANA Gender: Male Date: 1945 Study Date: 06-Aug-2016 Gameroom Technician: Sagrario Joe [facility] Location: 528 Ref. Physician: POLO SEVILLA Quality: Good Procedures: Transthoracic echocardiogram with complete 2D, M-Mode, and doppler examination. Indications: Tachycardia. 2D/M Mode Doppler Measurement Value Normal Ranges Measurement Value Normal Ranges LVIDd 2D 3.8 3.5 - 5.6 cm AV Peak Anurag 1.3 m/sec LVIDs 2D 2.2 2.1 - 4.1 cm AV Peak PG 7.0 mmHg FS 2D 41.2 % LVOT Peak Anurag 1.0 m/sec LVPWd 2D 1.0 0.6 - 1.1 cm LVOT Peak PG 4.0 mmHg IVSd 2D 1.0 0.6 - 1.1 cm TR Peak Anurag 2.9 m/sec IVS/LVPW 2D 1.1 TR Peak PG 33.0 mmHg AoR Diam 2D 2.7 2.0 - 3.7 cm RVSP 40.0 mmHg LA/Ao 2D 1 0 - 1 EDV 2D 54.4 cm3 ESV 2D 11.1 cm3 LA Dimen 2D 3.0 2.3 - 4.0 cm Findings Left Ventricle: Normal left ventricular systolic function. Normal left ventricular cavity size. Normal left ventricular wall thickness. Ejection fraction is visually estimated at 6065 %. Right Ventricle: Normal right ventricular size. Normal right ventricular systolic function. Left Atrium: The left atrium is normal in size. Right Atrium: The right atrium is normal in size. Mitral Valve: Mitral valve leaflets appear mildly thickened. Mild mitral annular calcification. Trace mitral regurgitation. Aortic Valve: Normal appearance of the aortic valve. No significant aortic stenosis or insufficiency. Tricuspid Valve: Estimated peak PA systolic pressure 40 mmHg. There is mild tricuspid regurgitation. Pulmonic Valve: Normal pulmonic valve appearance. Pericardium: Trivial pericardial effusion. Aorta: Normal aortic root. IVC: Normal size and normal respiratory collapse consistent with normal right atrial pressure. Conclusions 1.The left ventricle is normal in size and systolic function. 2.Estimated left ventricular ejection fraction of 60-65%. Electronically Signed By: Partha Willis 06-Aug-2016 13:43:32 -0700 Patient Name: MANOHAR ALDANA Study Date: 06-Aug-2016 [id number]
[2016-08-06 13:54] LABS: CK-MB 0.48 ng/ml (0.0-2.4); TROPONIN-I < 0.012 ng/ml (0.00-0.12)
--- NOTE | 2016-08-06 13:59 | PN ---
DATE: 08/06/2016 SUBJECTIVE: No acute changes. The patient is lying comfortably in bed. No fevers. MICROBIOLOGY: Sputum culture growing Escherichia coli, pseudomonas, Stenotrophomonas maltophilia. Urine culture grew Providencia stuartii. INDWELLINGS: Trach, PEG, Maldonado. PHYSICAL EXAMINATION: GENERAL: This is well-developed, elderly man who is in no distress. HEENT: Head atraumatic, normocephalic. Sclerae anicteric. Buccal mucosa dry. NECK: Supple. Tracheostomy present. CHEST: Rise symmetrical. Breath sounds diminished to bases. HEART: S1, S2. ABDOMEN: Soft. Bowel sounds present. EXTREMITIES: Without cyanosis. ASSESSMENT: 1. Resolving sepsis. 2. Chronic respiratory failure with sputum culture growing multiple organisms, possibly colonized. 3. Multidrug resistant Providencia stuartii urinary tract infection. 4. Dysphagia. 5. Diarrhea, stool for Clostridium difficile came back negative. PLAN: The patient remains stable. We are going to change antibiotics to Fortaz and Levaquin and co ntinue those for 7 more days to complete treatment. Dictated By: ALLYSON MCBRIDE RN REFERRAL for SHRUTHI ARANDA/NTS Conf#: [id number] DID#: [id number]
[2016-08-06] MEDS: CEFTAZIDIME 1GM/50 ML (PMX) 50 ML IVPB SCH ×2 (14:33→21:22)
[2016-08-06 16:44] LABS: CREATINE KINASE 75 IU/L (23-200)
[2016-08-06 16:57] LABS: CK-MB 0.43 ng/ml (0.0-2.4); TROPONIN-I < 0.012 ng/ml (0.00-0.12)
[2016-08-06] MEDS: METOPROLOL 25 MG TAB GTB SCH (20:11)
[2016-08-06 23:32] LABS: CREATINE KINASE 86 IU/L (23-200)
[2016-08-06 23:48] LABS: CK-MB 0.64 ng/ml (0.0-2.4); TROPONIN-I < 0.012 ng/ml (0.00-0.12)
[2016-08-07] VITALS (24 sets, daily range): BP systolic 119–173; BP diastolic 61–103; PULSE 107–125; RESP 16–32
[2016-08-07] MEDS: morphine 2 MG INJ IV PRN ×3 (00:24→23:05)
[2016-08-07] MEDS: SOD CHLORIDE 0.9% 1,000 ML IV SCH ×3 (01:18→17:44)
[2016-08-07] MEDS: ALBUTEROL 18 GM INHALER INH SCH ×4 (01:25→19:12)
[2016-08-07] MEDS: CEFTAZIDIME 1GM/50 ML (PMX) 50 ML IVPB SCH ×3 (05:02→21:03)
[2016-08-07] MEDS: LORAZEPAM 2 MG INJ IV PRN ×2 (05:34→11:33)
[2016-08-07] MEDS: LEVOFLOXACIN 500 MG TAB NGT SCH (05:36)
[2016-08-07 07:09] LABS: ADD SCAN DIFF NO
[2016-08-07 07:27] LABS: BASOPHILS % 0.3 % (0.0-2.0); EOSINOPHILS # 1.7 10^3/ul (0.0-0.5); EOSINOPHILS % 12.6 % (0.0-7.0); HEMATOCRIT 29.7 % (42.0-52.0); HEMOGLOBIN 9.8 g/dl (14.0-18.0); LYMPHOCYTES # 1.4 10^3/ul (0.8-2.9); LYMPHOCYTES % 10.6 % (15.0-51.0); MEAN CORPUSCULAR HEMOGLOBIN 29.8 pg (29.0-33.0); MEAN CORPUSCULAR VOLUME 90.3 fl (82.0-101.0); MEAN PLATELET VOLUME 12.5 fl (7.4-10.4); MONOCYTES % 7.3 % (0.0-11.0); NEUTROPHIL # 9.2 10^3/ul (1.6-7.5); NEUTROPHILS % 68.2 % (39.0-77.0); NUCLEATED RED BLOOD CELLS% 0.2 /100WBC (0.0-0.0); PLATELET COUNT 272 10^3/UL (140-415); RED BLOOD COUNT 3.29 10^6/ul (4.70-6.10); RED CELL DISTRIBUTION WIDTH 15.2 % (11.5-14.5); WHITE BLOOD COUNT 13.5 10^3/ul (4.8-10.8)
[2016-08-07 07:40] LABS: CALCIUM 8.5 mg/dl (8.4-10.2); CREATININE 0.8 mg/dl (0.61-1.24); POTASSIUM 3.5 mmol/L (3.5-5.1)
[2016-08-07] MEDS: FAMOTIDINE 20 MG INJ IV SCH (08:33)
[2016-08-07] MEDS: METOPROLOL 25 MG TAB GTB SCH ×2 (08:33→21:02)
[2016-08-07] MEDS: ENOXAPARIN 30 MG/0.3 ML SYG SC SCH (08:35)
[2016-08-07] MEDS: hydrALAzine 20 MG INJ IV PRN (08:43)
[2016-08-07 09:36] LABS: PHOSPHORUS 3.3 mg/dl (2.5-4.9)
[2016-08-07] MEDS ORDERED: IOHEXOL 100 ML ONE (09:58)
[2016-08-07] MEDS ORDERED: SOD CHLORIDE 0.9% 100 ML ONE (09:58)
--- NOTE | 2016-08-07 11:16 | PN ---
DATE: 08/07/2016 PULMONARY FOLLOWUP SUBJECTIVE: Chart reviewed. No significant events noted. Patient remains on the ventilator on 45% FIO2, saturating 99%, and does not appear in acute distress. PHYSICAL EXAMINATION: VITAL SIGNS: Blood pressure 136/76, pulse 111, respirations 17, temperature 98.2. HEENT: Pupils are equal and reactive to light, connected to the vent, in no distress. NECK: Supple. No JVD noted, no cervical lymphadenopathy noted, no carotid bruits heard. Tracheost maribeth in place. LUNGS: A few scattered rhonchi. CARDIOVASCULAR: S1, S2 normal. ABDOMEN: Soft, nontender. G-tube in place. No organomegaly or masses noted. EXTREMITIES: No clubbing or cyanosis noted. Contractures are present. NEUROLOGIC: Patient is awake, but does not follow any commands. LABORATORY: WBC 13.5, hemoglobin 9.8, hematocrit 29.7, platelets 272. Sodium 143, potassium 3.5, c hloride 112, CO2 24, BUN 12, creatinine 0.8, glucose 113. IMPRESSION: 1. Ventilatory-dependent respiratory failure, hypoxemic. 2. Status post sepsis. 3. Pneumonia, with multiple organisms. 4. History of paraplegia. 5. Encephalopathy. 6. Anemia. RECOMMENDATIONS: 1. Continue vent support. 2. Changes in antibiotic, per ID recommendations noted. 3. Pulmonary toilet. 4. Follow up labs and x-ray. Dictated By: EDUARDO BLUNT MD, MA/JOSE Conf#: [id number] DID#: [id number]
--- NOTE | 2016-08-07 13:41 | PN ---
Date/Time of Note Date/Time of Note DATE: 08/07/16 TIME: 13:39 Assessment/Plan VTE Prophylaxis VTE Prophylaxis Intervention: heparin Lines/Catheters IV [facility] Type (from [facility]): Peripheral IV Urinary Cath still in place: Yes Reason Cath still needed: pres ulcer contaminated by urine Assessment/Plan Problems: (1) Sepsis Status: Acute Comment: This is clearing it up a bit by all typical scientific parameters. Continue treatment. Antibiotics as per infectious disease consultation with stop dates Qualifiers: Sepsis type: sepsis due to unspecified organism Qualified Code: A41.9 - Sepsis, due to unspecified organism (2) UTI (urinary tract infection) Status: Acute Comment: Continue antibiotics as per ID with stop date Qualifiers: Urinary tract infection type: acute cystitis Hematuria presence: without hematuria Qualified Code: N30.00 - Acute cystitis without hematuria (3) Healthcare-associated pneumonia Status: Acute Comment: Colonization. He remains on antibiotic therapy with stop date (4) Acute and chronic respiratory failure with hypoxia Status: Acute Comment: Remains ventilator dependent with a tracheostomy. This is a long- term situation. It is not documented what his CODE STATUS is. This should be addressed (5) Status post tracheostomy Status: Chronic Comment: Noted and stable and functional (6) Status post insertion of percutaneous endoscopic gastrostomy (PEG) tube Status: Chronic Comment: Stable and operational. Patient is nutritionally stable (7) Urinary tract infection due to Proteus Status: Acute Comment: On antibiotic (8) Encephalopathy chronic Status: Chronic Comment: Severe chronic condition. Address long-term plans and CODE STATUS Subjective 24 Hr Interval Summary Free Text/Dictation Tracheostomy patient moves a bit but does not really respond Subjective hx not possible: pt non-verbal Exam/Review of Systems Vital Signs Vitals Vital Signs Date Time Temp Pulse Resp B/P Pulse Ox O2 Delivery O2 Flow Rate FiO2 08/07/16 12:20 125 08/07/16 11:24 29 99 45 08/07/16 11:18 99.6 161/77 Intake and Output 08/06/16 08/06/16 08/07/16 15:00 23:00 07:00 Intake Total 1300 ml 1675 ml Output Total 1250 ml 1000 ml Balance 50 ml 675 ml Exam Moves a little bit but does not respond to direct stimuli or questions Constitutional: non-verbal Respiratory: clear to auscultation, normal air movement Cardiovascular: nl pulses, regular rate and rhythm Results Result Diagram: 08/07/16 0633 08/07/16 0633 Results 24 hrs Laboratory Tests Test 08/06/16 16:10 08/06/16 22:43 08/07/16 06:33 Creatine Kinase 75 86 Creatine Kinase Index 0.6 0.7 Creatinine Kinase MB (Mass) 0.43 0.64 Troponin I < 0.012 < 0.012 White Blood Count 13.5 H Red Blood Count 3.29 L Hemoglobin 9.8 L Hematocrit 29.7 L Mean Corpuscular Volume 90.3 Mean Corpuscular Hemoglobin 29.8 Mean Corpuscular Hemoglobin Concent 33.0 Red Cell Distribution Width 15.2 H Platelet Count 272 # Mean Platelet Volume 12.5 H Neutrophils % 68.2 Lymphocytes % 10.6 L Monocytes % 7.3 Eosinophils % 12.6 H Basophils % 0.3 Nucleated Red Blood Cells % 0.2 H Neutrophils # 9.2 H Lymphocytes # 1.4 Monocytes # 1.0 H Eosinophils # 1.7 H Basophils # 0.0 Nucleated Red Blood Cells # 0.0 Sodium Level 143 Potassium Level 3.5 Chloride Level 112 H Carbon Dioxide Level 24 Anion Gap 11 Blood Urea Nitrogen 12 Creatinine 0.80 Glucose Level 113 Calcium Level 8.5 Phosphorus Level 3.3 Magnesium Level 2.0 Medications Medications Current Medications Ondansetron HCl (Zofran Inj) 4 mg Q6H PRN IV NAUSEA AND/OR VOMITING Last administered on 08/02/16 00:53; Admin Dose 4 MG; Start 08/01/16 at 11:30 Acetaminophen (Tylenol Tab) 650 mg Q6H PRN GTB PAIN LEVEL 1-3 OR FEVER Last administered on 08/03/16 05:04; Admin Dose 650 MG; Start 08/01/16 at 11:30 Morphine Sulfate (morphine) 2 mg Q4H PRN IV PAIN LEVEL 7-10 Last administered on 08/07/16 04:26; Admin Dose 2 MG; Start 08/01/16 at 11:30 Famotidine 20 mg 20 mg Q12 IV Last administered on 08/07/16 08:33; Admin Dose 20 MG; Start 08/01/16 at 21:00 Sodium Chloride (NS) 1,000 ml @ 75 mls/hr [id number] IV Last administered on 08/07 02:43; Admin Dose 75 MLS/HR; Start 08/01/16 at 12:00 Enoxaparin Sodium (Lovenox) 30 mg DAILY SC Last administered on 08/07/16 08:35 ; Admin Dose 30 MG; Start 08/02/16 at 09:00 Hydralazine HCl (Apresoline) 10 mg Q6H PRN IV SBP>160 Last administered on 08/07 08:43; Admin Dose 10 MG; Start 08/01/16 at 12:00 Lorazepam 1 mg 1 mg Q6H PRN IV AGITATION Last administered on 08/07/16 11:33; Admin Dose 1 MG; Start 08/06/16 at 01:30 Ceftazidime (Fortaz 1gm/50 ml (Pmx)) 50 ml @ 100 mls/hr Q8 IVPB Last administered on 08/07/16 05:02; Admin Dose 100 MLS/HR; Start 08/06/16 at 14:30 Levofloxacin (Levaquin) 500 mg DAILY@06 NGT Last administered on 08/07/16 05: 36; Admin Dose 500 MG; Start 08/07/16 at 06:00 Metoprolol Tartrate (Lopressor) 25 mg BID GTB Last administered on 08/07/16 08 :33; Admin Dose 25 MG; Start 08/06/16 at 21:00 YIN MOODY MD Aug 07, 2016 13:41
--- NOTE | 2016-08-07 15:29 | CONS ---
Date/Time of Note Date/Time of Note DATE: 08/07/16 TIME: 15:25 Assessment/Plan Assessment/Plan Chief Complaint/Hosp Course ID PROGRESS NOTE SUBJECTIVE: No acute changes. The patient is lying comfortably in bed. No fevers. MICROBIOLOGY: Sputum culture growing Escherichia coli, pseudomonas, Stenotrophomonas maltophilia. Urine culture grew Providencia stuartii. INDWELLINGS: Trach, PEG, Maldonado. PHYSICAL EXAMINATION: GENERAL: This is well-developed, elderly man who is in no distress. HEENT: Unremarkable NECK: Supple. Tracheostomy present. CHEST: Rise symmetrical. Breath sounds diminished to bases. HEART: S1, S2. ABDOMEN: Soft. Bowel sounds present. EXTREMITIES: Without cyanosis. ID ASSESSMENT: 1. Resolving sepsis. 2. Chronic respiratory failure with sputum culture growing multiple organisms, possibly colonized. 3. Multidrug resistant Providencia stuartii urinary tract infection. 4. Dysphagia. 5. Diarrhea, stool for Clostridium difficile came back negative. ID PLAN: Continue ABX for 6 more days to complete treatment * Levaquin + Fortaz until 08/13/16 . Problems: Consultation Date/Type/Reason Admit Date/Time Aug 01, 2016 at 11:32 Initial Consult Date 08/01/16 Type of Consultation: ID Exam/Review of Systems Vital Signs Vitals Vital Signs Date Time Temp Pulse Resp B/P Pulse Ox O2 Delivery O2 Flow Rate FiO2 08/07/16 13:40 119 25 98 45 08/07/16 11:18 99.6 161/77 Intake and Output 08/06/16 08/06/16 08/07/16 15:00 23:00 07:00 Intake Total 1300 ml 1675 ml Output Total 1250 ml 1000 ml Balance 50 ml 675 ml Results Result Diagram: 08/07/16 0633 08/07/16 0633 Results 24 hrs Laboratory Tests Test 08/06/16 16:10 08/06/16 22:43 08/07/16 06:33 Creatine Kinase 75 86 Creatine Kinase Index 0.6 0.7 Creatinine Kinase MB (Mass) 0.43 0.64 Troponin I < 0.012 < 0.012 White Blood Count 13.5 H Red Blood Count 3.29 L Hemoglobin 9.8 L Hematocrit 29.7 L Mean Corpuscular Volume 90.3 Mean Corpuscular Hemoglobin 29.8 Mean Corpuscular Hemoglobin Concent 33.0 Red Cell Distribution Width 15.2 H Platelet Count 272 # Mean Platelet Volume 12.5 H Neutrophils % 68.2 Lymphocytes % 10.6 L Monocytes % 7.3 Eosinophils % 12.6 H Basophils % 0.3 Nucleated Red Blood Cells % 0.2 H Neutrophils # 9.2 H Lymphocytes # 1.4 Monocytes # 1.0 H Eosinophils # 1.7 H Basophils # 0.0 Nucleated Red Blood Cells # 0.0 Sodium Level 143 Potassium Level 3.5 Chloride Level 112 H Carbon Dioxide Level 24 Anion Gap 11 Blood Urea Nitrogen 12 Creatinine 0.80 Glucose Level 113 Calcium Level 8.5 Phosphorus Level 3.3 Magnesium Level 2.0 Medications Medications Current Medications Ondansetron HCl (Zofran Inj) 4 mg Q6H PRN IV NAUSEA AND/OR VOMITING Last administered on 08/02/16 00:53; Admin Dose 4 MG; Start 08/01/16 at 11:30 Acetaminophen (Tylenol Tab) 650 mg Q6H PRN GTB PAIN LEVEL 1-3 OR FEVER Last administered on 08/03/16 05:04; Admin Dose 650 MG; Start 08/01/16 at 11:30 Morphine Sulfate (morphine) 2 mg Q4H PRN IV PAIN LEVEL 7-10 Last administered on 08/07/16 04:26; Admin Dose 2 MG; Start 08/01/16 at 11:30 Famotidine 20 mg 20 mg Q12 IV Last administered on 08/07/16 08:33; Admin Dose 20 MG; Start 08/01/16 at 21:00 Sodium Chloride (NS) 1,000 ml @ 75 mls/hr [id number] IV Last administered on 08/07 02:43; Admin Dose 75 MLS/HR; Start 08/01/16 at 12:00 Enoxaparin Sodium (Lovenox) 30 mg DAILY SC Last administered on 08/07/16 08:35 ; Admin Dose 30 MG; Start 08/02/16 at 09:00 Hydralazine HCl (Apresoline) 10 mg Q6H PRN IV SBP>160 Last administered on 08/07 08:43; Admin Dose 10 MG; Start 08/01/16 at 12:00 Lorazepam 1 mg 1 mg Q6H PRN IV AGITATION Last administered on 08/07/16 11:33; Admin Dose 1 MG; Start 08/06/16 at 01:30 Ceftazidime (Fortaz 1gm/50 ml (Pmx)) 50 ml @ 100 mls/hr Q8 IVPB Last administered on 08/07/16 14:18; Admin Dose 100 MLS/HR; Start 08/06/16 at 14:30 ; Stop 08/13/16 at 22:00 Levofloxacin (Levaquin) 500 mg DAILY@06 NGT Last administered on 08/07/16 05: 36; Admin Dose 500 MG; Start 08/07/16 at 06:00; Stop 08/13/16 at 23:00 Metoprolol Tartrate (Lopressor) 25 mg BID GTB Last administered on 08/07/16 08 :33; Admin Dose 25 MG; Start 08/06/16 at 21:00 WENCESLAO ASHTON NP Aug 07, 2016 15:28
[2016-08-07] MEDS ORDERED: LORAZEPAM 1 MG TAB NGT PRN (16:00)
[2016-08-07] MEDS ORDERED: LORAZEPAM 1 MG TAB PO PRN (16:00)
[2016-08-07] MEDS: FAMOTIDINE 20 MG TAB NGT SCH (21:02)
[2016-08-08] VITALS (24 sets, daily range): BP systolic 124–167; BP diastolic 77–83; PULSE 85–118; RESP 12–28
[2016-08-08] MEDS: ALBUTEROL 18 GM INHALER INH SCH ×4 (01:12→19:01)
[2016-08-08] MEDS: SOD CHLORIDE 0.9% 1,000 ML IV SCH ×2 (03:35→17:20)
[2016-08-08] MEDS: CEFTAZIDIME 1GM/50 ML (PMX) 50 ML IVPB SCH ×3 (05:15→21:20)
[2016-08-08] MEDS: LEVOFLOXACIN 500 MG TAB NGT SCH (05:16)
[2016-08-08] MEDS: METOPROLOL 25 MG TAB GTB SCH ×2 (09:36→20:20)
[2016-08-08] MEDS: FAMOTIDINE 20 MG TAB NGT SCH ×2 (09:39→20:18)
[2016-08-08] MEDS: ENOXAPARIN 30 MG/0.3 ML SYG SC SCH (09:41)
--- NOTE | 2016-08-08 12:04 | PN ---
Date/Time of Note Date/Time of Note DATE: 08/08/16 TIME: 12:02 Assessment/Plan VTE Prophylaxis VTE Prophylaxis Intervention: other Lines/Catheters IV Catheter Type (from [facility]): Peripheral IV Urinary Cath still in place: Yes Reason Cath still needed: pres ulcer contaminated by urine Assessment/Plan Problems: (1) UTI (urinary tract infection) Status: Acute Comment: Responding nicely to antibiotic therapy. Infectious disease consultation is been extremely helpful and is deeply appreciated Qualifiers: Urinary tract infection type: acute cystitis Hematuria presence: without hematuria Qualified Code: N30.00 - Acute cystitis without hematuria (2) Sepsis Status: Resolved Comment: Stabilized and improved Qualifiers: Sepsis type: sepsis due to unspecified organism Qualified Code: A41.9 - Sepsis, due to unspecified organism (3) Encephalopathy chronic Status: Chronic Comment: Regrettably this is a chronic condition with no meaningful hope of recovery. I suspect it has already been done because be worth it to reapproach the spokes people for advanced directives (4) Urinary tract infection due to Proteus Status: Acute Comment: On appropriate antibiotic therapy see above (5) Acute and chronic respiratory failure with hypoxia Status: Acute Comment: Remains ventilator dependent with tracheostomy and feeding tube (6) Healthcare-associated pneumonia Status: Acute Comment: Resolving with antibiotic Subjective 24 Hr Interval Summary Free Text/Dictation Tracheostomy patient with significant encephalopathy nonresponsive to verbal stimuli Subjective hx not possible: pt non-verbal Exam/Review of Systems Vital Signs Vitals Vital Signs Date Time Temp Pulse Resp B/P Pulse Ox O2 Delivery O2 Flow Rate FiO2 08/08/16 11:30 99.0 105 19 124/78 98 08/08/16 09:25 45 Intake and Output 08/07/16 08/07/16 08/08/16 15:00 23:00 07:00 Intake Total 1500 ml 850 ml Output Total 2500 ml 1800 ml Balance -1000 ml -950 ml Exam Constitutional: non-verbal Neck: other (Tracheostomy present), supple Respiratory: clear to auscultation, normal air movement Cardiovascular: nl pulses, regular rate and rhythm Extremities: other (Upper extremity contracture) Results Result Diagram: 08/07/1633 08/07/16632 Medications Medications Current Medications Ondansetron HCl (Zofran Inj) 4 mg Q6H PRN IV NAUSEA AND/OR VOMITING Last administered on 08/02/16 00:53; Admin Dose 4 MG; Start 08/01/16 at 11:30 Acetaminophen (Tylenol Tab) 650 mg Q6H PRN GTB PAIN LEVEL 1-3 OR FEVER Last administered on 08/03/16 05:04; Admin Dose 650 MG; Start 08/01/16 at 11:30 Morphine Sulfate 2 mg 2 mg Q4H PRN IV PAIN LEVEL 7-10 Last administered on 08/07 23:05; Admin Dose 2 MG; Start 08/01/16 at 11:30 Sodium Chloride (NS) 1,000 ml @ 75 mls/hr [id number] IV Last administered on 08/08 03:35; Admin Dose 75 MLS/HR; Start 08/01/16 at 12:00 Enoxaparin Sodium (Lovenox) 30 mg DAILY SC Last administered on 08/08/16 09:41 ; Admin Dose 30 MG; Start 08/02/16 at 09:00 Hydralazine HCl 10 mg 10 mg Q6H PRN IV SBP>160 Last administered on 08/07/16 08:43; Admin Dose 10 MG; Start 08/01/16 at 12:00 Ceftazidime (Fortaz 1gm/50 ml (Pmx)) 50 ml @ 100 mls/hr Q8 IVPB Last administered on 08/08/16 05:15; Admin Dose 100 MLS/HR; Start 08/06/16 at 14:30 ; Stop 08/13/16 at 22:00 Levofloxacin (Levaquin) 500 mg DAILY@06 NGT Last administered on 08/08/16 05: 16; Admin Dose 500 MG; Start 08/07/16 at 06:00; Stop 08/13/16 at 23:00 Metoprolol Tartrate (Lopressor) 25 mg BID GTB Last administered on 08/08/16 09 :36; Admin Dose 25 MG; Start 08/06/16 at 21:00 Famotidine (Pepcid) 20 mg Q12 NGT Last administered on 08/08/16 09:39; Admin Dose 20 MG; Start 08/07/16 at 21:00 Lorazepam (Ativan) 1 mg Q6H PRN NGT AGITATION Last administered on 08/08/16 00 :31; Admin Dose 1 MG; Start 08/07/16 at 16:00 YIN MOODY MD Aug 08, 2016 12:04
[2016-08-08] MEDS: morphine 2 MG INJ IV PRN ×2 (12:19→14:18)
--- NOTE | 2016-08-08 16:00 | PN ---
DATE: 08/08/2016 SUBJECTIVE: Chart reviewed. The patient remains on ventilator on 45% FIO2, saturating 98%. PHYSICAL EXAMINATION: VITAL SIGNS: Blood pressure 124/78, pulse 105, respiration 19, temperature 99%. HEENT: Pupils are equal and reactive to light. NECK: Supple, no JVD noted, no cervical adenopathy, no carotid bruits heard. Tracheostomy in place . LUNGS: Few scattered rhonchi. CARDIOVASCULAR: S1, S2 normal. ABDOMEN: Soft, nontender. No organomegaly or masses noted. G-tube in place. EXTREMITIES: No clubbing or cyanosis noted. Contractures are present. NEUROLOGIC: Encephalopathic. IMPRESSION: 1. Ventilator-dependent respiratory failure, hypoxemia. 2. Status post sepsis. 3. Pneumonia. 4. History of paraplegia. 5. Encephalopathy. 6. Anemia. RECOMMENDATIONS: 1. Continue vent support. 2. Continue antibiotics per ID recommendation. 3. Tracheal suctioning. 4. Followup labs. Dictated By: EDUARDO BLUNT MD, MA/JOSE Conf#: [id number] DID#: [id number]
--- NOTE | 2016-08-08 17:57 | CONS ---
Date/Time of Note Date/Time of Note DATE: 08/08/16 TIME: 17:55 Assessment/Plan Assessment/Plan Chief Complaint/Hosp Course SUBJECTIVE: Patient remains unchanged. Looks comfortable, no fevers MICROBIOLOGY: Sputum culture growing Escherichia coli, pseudomonas, Stenotrophomonas maltophilia. Urine culture grew Providencia stuartii. INDWELLINGS: Trach, PEG, Maldonado. ANTIMICROBIALS: 1. Fortaz. 2. Levaquin PHYSICAL EXAMINATION: GENERAL: Chronically ill-appearing, elderly man in no distress. HEENT: Head atraumatic, normocephalic. Sclerae anicteric. Buccal mucosa dry. NECK: Supple. Tracheostomy present. CHEST: Rise symmetrical. Breath sounds diminished to bases. HEART: S1, S2. ABDOMEN: Soft, bowel tones present. EXTREMITIES: No cyanosis. Contractures. ASSESSMENT: 1. Sepsis secondary to urinary tract infection and pneumonia. 2. Diarrhea, stool for Clostridium difficile came back negative. 3. Chronic respiratory failure. 4. Dysphagia. 5. Chronic encephalopathy. PLAN: The patient remains stable. He is on appropriate antimicrobials, pending dc planning. DW staff Problems: Consultation Date/Type/Reason Admit Date/Time Aug 01, 2016 at 11:32 Initial Consult Date 08/01/16 Type of Consultation: ID Exam/Review of Systems Vital Signs Vitals Vital Signs Date Time Temp Pulse Resp B/P Pulse Ox O2 Delivery O2 Flow Rate FiO2 08/08/16 17:17 106 24 95 45 08/08/16 11:30 99.0 124/78 Intake and Output 08/07/16 08/07/16 08/08/16 15:00 23:00 07:00 Intake Total 1500 ml 850 ml Output Total 2500 ml 1800 ml Balance -1000 ml -950 ml Results Result Diagram: 08/07/1633 08/07/16 0633 Medications Medications Current Medications Ondansetron HCl (Zofran Inj) 4 mg Q6H PRN IV NAUSEA AND/OR VOMITING Last administered on 08/02/16 00:53; Admin Dose 4 MG; Start 08/01/16 at 11:30 Acetaminophen (Tylenol Tab) 650 mg Q6H PRN GTB PAIN LEVEL 1-3 OR FEVER Last administered on 08/03/16 05:04; Admin Dose 650 MG; Start 08/01/16 at 11:30 Morphine Sulfate 2 mg 2 mg Q4H PRN IV PAIN LEVEL 7-10 Last administered on 08/08 14:18; Admin Dose 2 MG; Start 08/01/16 at 11:30 Sodium Chloride (NS) 1,000 ml @ 75 mls/hr [id number] IV Last administered on 08/08 03:35; Admin Dose 75 MLS/HR; Start 08/01/16 at 12:00 Enoxaparin Sodium (Lovenox) 30 mg DAILY SC Last administered on 08/08/16 09:41 ; Admin Dose 30 MG; Start 08/02/16 at 09:00 Hydralazine HCl 10 mg 10 mg Q6H PRN IV SBP>160 Last administered on 08/07/16 08:43; Admin Dose 10 MG; Start 08/01/16 at 12:00 Ceftazidime (Fortaz 1gm/50 ml (Pmx)) 50 ml @ 100 mls/hr Q8 IVPB Last administered on 08/08/16 14:43; Admin Dose 100 MLS/HR; Start 08/06/16 at 14:30 ; Stop 08/13/16 at 22:00 Levofloxacin (Levaquin) 500 mg DAILY@06 NGT Last administered on 08/08/16 05: 16; Admin Dose 500 MG; Start 08/07/16 at 06:00; Stop 08/13/16 at 23:00 Metoprolol Tartrate (Lopressor) 25 mg BID GTB Last administered on 08/08/16 09 :36; Admin Dose 25 MG; Start 08/06/16 at 21:00 Famotidine (Pepcid) 20 mg Q12 NGT Last administered on 08/08/16 09:39; Admin Dose 20 MG; Start 08/07/16 at 21:00 Lorazepam (Ativan) 1 mg Q6H PRN NGT AGITATION Last administered on 08/08/16 00 :31; Admin Dose 1 MG; Start 08/07/16 at 16:00 ALLYSON MCBRIDE NP Aug 08, 2016 17:57
--- NOTE | 2016-08-08 19:09 | RADRPT ---
AMENDMENT: 08/09/2016 2:03:25 PM Oscar Munguia M.D. Impression: The contrast utilized was 90 cc of intravenous Iobitridol. This represents a correctio n to the report. [facility] Radiology Report Patient Name: KATYA VILLELA Report Date: 08-Aug-2016 19:09.00 Accession No.: [id number] Patient Date: 1945 Report Status: S Referring Physician: NIKOLAI CUELLAR Reason For Study: Resp failure and tachycardia r/o [place] [address] Radiology Main Line: [phone] DIAGNOSTIC IMAGING REPORT Patient: MANOHAR ALDANA : 1945 Age: 70 Sex: M MR #: [id number] DOS: 08/06/16 1048 Ordering MD: POLO SEVILLA Location: [facility] Room/Bed: [facility] PROCEDURE: CT pulmonary angiogram and CT scan of the chest. CLINICAL INDICATION: Resp failure and tachycardia. TECHNIQUE: The study was performed utilizing a multidetector CT scanner. Direct helical 1 mm axial sections were obtained from the thoracic inlet to the upper abdomen with the use of 90 cc of Omnipaque 350 nonionic intravenous contrast material and reformatted at 3 mm. Sagittal and coronal reformations were obtained. 3-D post processing was performed using the data from the axial images. The images were reviewed on a PACS workstation. CTDI: 16.9 and DLP: 593.04 One or more of the following dose reduction techniques were used: Automated exposure control, adjustment of the mA and/or kV according to patient size, use of iterative reconstruction technique. COMPARISON: No prior studies are available for comparison. FINDINGS: There are vascular calcifications in the proximal right common carotid artery. There is hard and soft plaquing in the proximal left common carotid artery. A tracheostomy tube is in place with its tip near T3. There are vascular calcifications in the distal innominate artery. There are vascular calcifications in the aortic arch. No aortic dissection or transection is identified. The main pulmonary artery and pulmonary artery outflow tracts are normal. No central or segmental pulmonary emboli are identified. There is a moderate size right pleural effusion, and a small left pleural effusion. There is extensive bilateral pulmonary airspace and interstitial disease consistent with pneumonia. An 8 mm lymph node is identified lateral to the right mainstem bronchus. Two enlarged 1 cm lymph nodes are noted near the level of the lorie. There are small lymph nodes in the aorticopulmonary window. There is a 7.6 mm lymph node in the left hilar area. There is no axillary or supraclavicular lymphadenopathy. The heart is normal in size. There are vascular calcifications in the left anterior descending coronary artery. There is bilateral gynecomastia. There are degenerative changes around the right AC joint with old fracture deformity identified involving the acromion and lateral right clavicle. No acute bony fracture or bone metastasis is identified. There are degenerative osteophytes in the cervical and thoracic spine. There are old healed right-sided rib fractures. The liver measures 15.1 cm AP with no hepatic mass or intrahepatic biliary ductal dilatation identified. The spleen is unremarkable. The visible portions of the pancreas are normal. The visible portion of the left kidney is normal. The visible portions of the adrenal glands are normal. IMPRESSION: 1. Pneumonia with bilateral pleural effusions. Right is worse than left. 2. No central or segmental pulmonary emboli. 3. Old right-sided rib fractures and fracture deformities involving the right acromion and distal right clavicle. 4. Bilateral gynecomastia. 5. Atherosclerotic vascular disease. 6. Nonspecific mildly enlarged lymph nodes at the level of the lorie. RPTAT: QQ .Farhat Salgado MD, Date Time Electronically viewed and signed by .Farhat Salgado MD, on 08/08/2016 19:09 .R/ CC: POLO SEVILLA Darren Munguia Physician Date Time Electronically viewed and signed by Darren Munguia, Physician on 08/09/2016 14:03 FRANK/
[2016-08-09] VITALS (14 sets, daily range): BP systolic 123–131; BP diastolic 74–84; PULSE 96–110; RESP 19–38
[2016-08-09] MEDS: morphine 2 MG INJ IV PRN (00:02)
[2016-08-09] MEDS: ALBUTEROL 18 GM INHALER INH SCH ×2 (01:15→07:44)
[2016-08-09] MEDS: LEVOFLOXACIN 500 MG TAB NGT SCH (05:05)
[2016-08-09] MEDS: CEFTAZIDIME 1GM/50 ML (PMX) 50 ML IVPB SCH (05:05)
[2016-08-09] MEDS: SOD CHLORIDE 0.9% 1,000 ML IV SCH (05:10)
[2016-08-09] MEDS: METOPROLOL 25 MG TAB GTB SCH (10:00)
[2016-08-09] MEDS: FAMOTIDINE 20 MG TAB NGT SCH (10:00)
[2016-08-09] MEDS: ENOXAPARIN 30 MG/0.3 ML SYG SC SCH (10:02)
[2016-08-09] MEDS ORDERED: LEVO500T72 NGT (10:03)
--- NOTE | 2016-08-09 10:04 | DS ---
Date/Time of Note Date/Time of Note DATE: 08/09/16 TIME: 10:04 Discharge Summary Admission/Discharge Info Admit Date/Time Aug 01, 2016 at 11:32 Discharge Date/Time Patient Condition: Stable Consults infectious disease, pulmonology Procedures 6.18 urine culture PROVIDENCIA STUARTII 6.20 sputum culture: EColi, pseudomonas, Stenotrophomonas CDiff: negative TTE 6.23 1. The left ventricle is normal in size and systolic function. 2. Estimated left ventricular ejection fraction of 60-65%. CT chest 6.23 IMPRESSION: 1. Pneumonia with bilateral pleural effusions. Right is worse than left. 2. No central or segmental pulmonary emboli. 3. Old right-sided rib fractures and fracture deformities involving the right acromion and distal right clavicle. 4. Bilateral gynecomastia. 5. Atherosclerotic vascular disease. 6. Nonspecific mildly enlarged lymph nodes at the level of the lorie. Hx of Present Illness This is an unfortunate 70-year-old male who is chronically bedridden with chronic encephalopathy who has chronic respiratory failure with a tracheostomy usually to room air who was brought in from a detention facility because of a febrile illness and increased respiratory rate. The patient is nonverbal and is unable to give any detailed history. The details of the patient's medical problems were obtained by review of the patient's medical records. In the emergency room, the patient was noticed to have a fever of 101.5 degrees Fahrenheit. The patient's urinalysis showed positive 3+ leukocyte esterase with urine microscopic WBC of 10 to 25. The patient's chest x-ray was showing interstitial and alveolar airspace opacity in the right mid and lower lung zones , suspicious for early pneumonia. The patient also had underlying lactic acidosis and anion gap metabolic acidosis. In the emergency room, the patient was treated with IV Zosyn and IV vancomycin along with IV normal saline bolus. The patient was started on mechanical ventilation because of underlying hypoxia. Hospital Course 70 yo M with chronic encephalopathy, chronic respiratory failure on vent transferred from facility for sepsis, presumed 2/2 UTI v HCAP. ID service consulted, abx adjusted and pt will transferred back to his facility to complete his abx. Only change from admit meds is 5 more days of abx Home Meds Active Scripts Ceftazidime (Fortaz) 1 Gm Vial.port, 1 GM IV Q8 for 5 Days Prov:HARVEY HILLMAN MD 08/09/16 Levofloxacin* (Levaquin*) 500 Mg Tablet, 500 MG NGT DAILY@06 for 5 Days, #5 TAB Prov:HARVEY HILLMAN MD 08/09/16 Reported Medications Omeprazole* (Omeprazole*) 20 Mg Capsule.dr, 20 MG GTB DAILY, #30 CAP 08/01/16 Levalbuterol Hcl* (Levalbuterol Hcl*) 0.63 Mg/3 Ml Vial.neb, 0.63 MG INHALATION Q6H Y for WHEEZING AND SOB, VIAL 08/01/16 Enoxaparin Sodium* (Enoxaparin Sodium*) 40 Mg/0.4 Ml Syringe, 40 MG SC DAILY, SYR 08/01/16 Ascorbic Acid* (Vitamin C* Liq) 500 Mg/5 Ml Syrup, 500 MG GTB DAILY, ML 10/20/15 Cran/Vitc/Mannose/Inulin/Brom (Uti-Stat Liquid) 3,875 Mg/30 Ml Liquid, 3875 MG GTB DAILY 10/20/15 Acetaminophen* (Tylenol*) 325 Mg Tablet, 650 MG GTB Q4H Y for MILD PAIN & TEMP 101F, TAB 10/20/15 Thiamine* (Thiamine*) 100 Mg Tablet, 100 MG GTB DAILY, TAB 10/20/15 Hydrocodone/Acetaminophen ([place] 5-325 Tablet) 1 Each Tablet, 1 EACH PO BID for PAIN, TAB 10/20/15 Hydrocodone/Acetaminophen ([place] 5-325 Tablet) 1 Each Tablet, 1 EACH PO Q6H Y for PAIN LEVEL 6-10, TAB 10/20/15 Multivit &Minerals/Ferrous Fum (MULTIVITAMIN LIQUID) 9 Mg/15 Ml Liquid, 5 ML GTB DAILY 10/20/15 Magnesium Hydroxide* (Milk Of Magnesia*) 400 Mg/5 Ml Oral.susp, 30 ML PO DAILY Y for CONSTIPATION, ML 10/20/15 Mineral Oil (Fleet Mineral Oil Enema) 133 Ml Enema, 133 ML RC Y for IF DULCOLAX IS INEFFECTIVE, ENEMA 10/20/15 Bisacodyl* (Bisacodyl*) 10 Mg Supp, 10 MG MA DAILY Y for IF MOM IS INEFFECTIVE, SUPP 10/20/15 Docusate Sodium* (Colace* Liq) 50 Mg/5 Ml Liquid, 100 MG GTB QHS, EA 10/20/15 Chlorhexidine Gluconate* (Chlorhexidine Gluconate*) 118 Ml Liquid, 15 ML PO Q12H , ML 10/20/15 Follow-up Plan as per facility Primary Care Provider Helio Wilhelm MD Time spent on discharge: > 30 minutes HARVEY HILLMAN MD Aug 09, 2016 10:04
[2016-08-09] MEDS ORDERED: CEFT1VIA IV (10:14)
--- NOTE | 2016-08-09 13:26 | CONS ---
Date/Time of Note Date/Time of Note DATE: 08/09/16 TIME: 13:25 Assessment/Plan Assessment/Plan Chief Complaint/Hosp Course SUBJECTIVE: Patient remains unchanged. Looks comfortable, no fevers MICROBIOLOGY: Sputum culture growing Escherichia coli, pseudomonas, Stenotrophomonas maltophilia. Urine culture grew Providencia stuartii. INDWELLINGS: Trach, PEG, Maldonado. ANTIMICROBIALS: 1. Fortaz. 2. Levaquin PHYSICAL EXAMINATION: GENERAL: Chronically ill-appearing, elderly man in no distress. HEENT: Head atraumatic, normocephalic. Sclerae anicteric. Buccal mucosa dry. NECK: Supple. Tracheostomy present. CHEST: Rise symmetrical. Breath sounds diminished to bases. HEART: S1, S2. ABDOMEN: Soft, bowel tones present. EXTREMITIES: No cyanosis. Contractures. ASSESSMENT: 1. Sepsis secondary to urinary tract infection and pneumonia. 2. Diarrhea, stool for Clostridium difficile came back negative. 3. Chronic respiratory failure. 4. Dysphagia. 5. Chronic encephalopathy. PLAN: The patient remains stable. He is on appropriate antimicrobials, pending dc planning. DW staff Problems: Consultation Date/Type/Reason Admit Date/Time Aug 01, 2016 at 11:32 Initial Consult Date 08/01/16 Type of Consultation: ID Exam/Review of Systems Vital Signs Vitals Vital Signs Date Time Temp Pulse Resp B/P Pulse Ox O2 Delivery O2 Flow Rate FiO2 08/09/16 12:26 96 08/09/16 11:56 98.0 38 130/84 96 08/09/16 11:20 45 Intake and Output 08/08/16 08/08/16 08/09/16 15:00 23:00 07:00 Intake Total 1700 ml 750 ml Output Total 1000 ml 1200 ml Balance 700 ml -450 ml Results Result Diagram: 08/07/16 0633 08/07/16 0633 Medications Medications Current Medications Ondansetron HCl (Zofran Inj) 4 mg Q6H PRN IV NAUSEA AND/OR VOMITING Last administered on 08/02/16 00:53; Admin Dose 4 MG; Start 08/01/16 at 11:30 Acetaminophen (Tylenol Tab) 650 mg Q6H PRN GTB PAIN LEVEL 1-3 OR FEVER Last administered on 08/03/16 05:04; Admin Dose 650 MG; Start 08/01/16 at 11:30 Morphine Sulfate 2 mg 2 mg Q4H PRN IV PAIN LEVEL 7-10 Last administered on 08/09 00:02; Admin Dose 2 MG; Start 08/01/16 at 11:30 Sodium Chloride (NS) 1,000 ml @ 75 mls/hr [id number] IV Last administered on 08/09 05:10; Admin Dose 75 MLS/HR; Start 08/01/16 at 12:00 Enoxaparin Sodium (Lovenox) 30 mg DAILY SC Last administered on 08/09/16 10:02 ; Admin Dose 30 MG; Start 08/02/16 at 09:00 Hydralazine HCl 10 mg 10 mg Q6H PRN IV SBP>160 Last administered on 08/07/16 08:43; Admin Dose 10 MG; Start 08/01/16 at 12:00 Ceftazidime (Fortaz 1gm/50 ml (Pmx)) 50 ml @ 100 mls/hr Q8 IVPB Last administered on 08/09/16 05:05; Admin Dose 100 MLS/HR; Start 08/06/16 at 14:30 ; Stop 08/13/16 at 22:00 Levofloxacin (Levaquin) 500 mg DAILY@06 NGT Last administered on 08/09/16 05: 05; Admin Dose 500 MG; Start 08/07/16 at 06:00; Stop 08/13/16 at 23:00 Metoprolol Tartrate (Lopressor) 25 mg BID GTB Last administered on 08/09/16 10 :00; Admin Dose 25 MG; Start 08/06/16 at 21:00 Famotidine (Pepcid) 20 mg Q12 NGT Last administered on 08/09/16 10:00; Admin Dose 20 MG; Start 08/07/16 at 21:00 Lorazepam (Ativan) 1 mg Q6H PRN NGT AGITATION Last administered on 08/08/16 00 :31; Admin Dose 1 MG; Start 08/07/16 at 16:00 ALLYSON MCBRIDE NP Aug 09, 2016 13:26
[2016-08-09] MEDS ORDERED: FAMO20TA18 NGT (13:48)
[2016-08-09] MEDS ORDERED: METO-448 GTB (13:48)
== END 2016-08-09 14:06 | DRG 870 ==
LOC: E/R 07:18 → TEL 11:32
PROVIDERS: ADMIT Family Medicine; ATTEND Family Medicine
PROC: 5A1955Z Respiratory Ventilation, Greater than 96 Consecutive Hours (ICD-10-PCS; principal; 2016-08-01)
DX: A41.9 Sepsis, unspecified organism (principal); J96.21 Acute and chronic respiratory failure with hypoxia; G93.40 Encephalopathy, unspecified; J18.9 Pneumonia, unspecified organism; L89.214 Pressure ulcer of right hip, stage 4; Z93.0 Tracheostomy status; L89.622 Pressure ulcer of left heel, stage 2; F03.90 Unspecified dementia, unspecified severity, without behavioral disturbance, psychotic disturbance, mood disturbance, and anxiety; G82.20 Paraplegia, unspecified; N39.0 Urinary tract infection, site not specified; N30.00 Acute cystitis without hematuria; Z93.1 Gastrostomy status; Z86.718 Personal history of other venous thrombosis and embolism; N18.1 Chronic kidney disease, stage 1; R19.7 Diarrhea, unspecified; B96.89 Other specified bacterial agents as the cause of diseases classified elsewhere; Z16.24 Resistance to multiple antibiotics; R13.10 Dysphagia, unspecified; K02.9 Dental caries, unspecified; R00.0 Tachycardia, unspecified; B96.20 Unspecified Escherichia coli [E. coli] as the cause of diseases classified elsewhere; B96.5 Pseudomonas (aeruginosa) (mallei) (pseudomallei) as the cause of diseases classified elsewhere; B96.4 Proteus (mirabilis) (morganii) as the cause of diseases classified elsewhere
CPT/HCPCS: 36415; 36600; 71010; 71275; 80048; 80053; 80061; 80202; 81001; 82550; 82553; 82652; 82803; 83036; 83605; 83735; 84100; 84439; 84443; 84484; 85025; 85610; 85730; 87040; 87045; 87070; 87075; 87081; 87086; 89220; 93005; 93306; 94002; 94003; 94640; 94664; 96365; 96372; 96375; 96376; J0360; J1650; J2060; J2270; J2405; J2543; J3370; J7030; J7050; Q9967

== ENCOUNTER 2018-08-29 06:57 | Emergency (ER) | payer OTHER ==
[~2018-08-29] VITALS: Ht 170.2 cm; Wt 65.0 kg
[~2018-08-29 06:57] MED LIST changes: -ALBU2.5V3 NEB; +CEFT1VIA IV; +DOCU50LI23 GTB; +ENOX40DI2 SC; -ESOM40CA PO; +FAMO20TA18 NGT; -FLEETOIL RC; +HYDR-4011 PO; -HYDR-906 PO; +LEVA0.634 INHALATION; +LEVO500T48 NGT; +MAGN400O19 PO; -MAGN400O4 PO; +METO-448 GTB; +MINE133E23 RC; +OMEP20CA16 GTB; -UDCOL GTB
[2018-08-29 06:58] VITALS: Ht 170.2 cm; Wt 65.0 kg
[2018-08-29 07:00] VITALS: RESP 12
[2018-08-29] MEDS ORDERED: CEFEPIME 2GM/50 ML (PMX) 50 ML IVPB STA (07:29)
[2018-08-29] MEDS ORDERED: SODIUM CHLORIDE 0.9% 1L BAG IV* STA (07:29)
[2018-08-29] MEDS ORDERED: VANCOMYCIN 1 GM (PMX) 250 ML IVPB ONE (07:30)
--- NOTE | 2018-08-29 08:52 | ERD ---
ER Documentation Chief Complaint Chief Complaint BIB RA 39 FOR EVAL OF ALOC. PT ARRIVES IN CARDIAC ARREST HPI This is a 72-year-old male that was brought into the emergency department by EMS for changes in his mental status from [facility]. The patient is trach to vent dependent. He has a PEG tube. The patient according to EMS was experiencing hypoxia and difficulty in breathing. Nursing staff stated that the patient's last known normal time was roughly 13 hours prior to arrival, at 4:30 PM yesterday evening. When nursing staff went to the bedside this morning indicated that the patient was not responsive. No further history is available ROS All systems reviewed and are negative except as per history of present illness. Medications Home Meds Active Scripts Famotidine* (Famotidine*) 20 Mg Tablet, 20 MG NGT Q12 for 7 Days, #7 TAB Prov:HARVEY HILLMAN MD 08/09/16 Metoprolol Tartrate* (Lopressor*) 25 Mg Tab, 25 MG GTB BID for 7 Days, #14 TAB Prov:HARVEY HILLMAN MD 08/09/16 Ceftazidime (Fortaz) 1 Gm Vial.port, 1 GM IV Q8 for 5 Days Prov:HARVEY HILLMAN MD 08/09/16 Levofloxacin* (Levaquin*) 500 Mg Tablet, 500 MG NGT DAILY@06 for 5 Days, #5 TAB Prov:HARVEY HILLMAN MD 08/09/16 Reported Medications Omeprazole* (Omeprazole*) 20 Mg Capsule.dr, 20 MG GTB DAILY, #30 CAP 08/01/16 Levalbuterol Hcl* (Levalbuterol Hcl*) 0.63 Mg/3 Ml Vial.neb, 0.63 MG INHALATION Q6H PRN for WHEEZING AND SOB, VIAL 08/01/16 Enoxaparin Sodium* (Enoxaparin Sodium*) 40 Mg/0.4 Ml Syringe, 40 MG SC DAILY, SYR 08/01/16 Ascorbic Acid* (Vitamin C* Liq) 500 Mg/5 Ml Syrup, 500 MG GTB DAILY, ML 10/20/15 Cran/Vitc/Mannose/Inulin/Brom (Uti-Stat Liquid) 3,875 Mg/30 Ml Liquid, 3875 MG GTB DAILY 10/20/15 Acetaminophen* (Tylenol*) 325 Mg Tablet, 650 MG GTB Q4H PRN for MILD PAIN & TEMP 101F, TAB 10/20/15 Thiamine* (Thiamine*) 100 Mg Tablet, 100 MG GTB DAILY, TAB 10/20/15 Hydrocodone/Acetaminophen ([place] 5-325 Tablet) 1 Each Tablet, 1 EACH PO BID for PAIN, TAB 10/20/15 Hydrocodone/Acetaminophen ([place] 5-325 Tablet) 1 Each Tablet, 1 EACH PO Q6H PRN for PAIN LEVEL 6-10, TAB 10/20/15 Multivit &Minerals/Ferrous Fum (MULTIVITAMIN LIQUID) 9 Mg/15 Ml Liquid, 5 ML GTB DAILY 10/20/15 Magnesium Hydroxide* (Milk Of Magnesia*) 400 Mg/5 Ml Oral.susp, 30 ML PO DAILY PRN for CONSTIPATION, ML 10/20/15 Mineral Oil (Fleet Mineral Oil Enema) 133 Ml Enema, 133 ML RC PRN for IF DULCOLAX IS INEFFECTIVE, ENEMA 10/20/15 Bisacodyl* (Bisacodyl*) 10 Mg Supp, 10 MG HI DAILY PRN for IF MOM IS INEFFECTIVE, SUPP 10/20/15 Docusate Sodium* (Colace* Liq) 50 Mg/5 Ml Liquid, 100 MG GTB QHS, EA 10/20/15 Chlorhexidine Gluconate* (Chlorhexidine Gluconate*) 118 Ml Liquid, 15 ML PO Q12H, ML 10/20/15 Allergies Allergies: Coded Allergies: No Known Allergies (Verified Allergy, Unknown, 08/03/16) The charts from previous facility shows pt has no known allergy. PMhx/Soc History of Surgery: Yes (Trech and Peg) Hx Neurological Disorder: Yes (Encephalopathy, Quadroplagia) Hx Respiratory Disorders: Yes (Rrspiratory failure on ventilator, PNA) Hx Cardiac Disorders: Yes (Tachycardia, DVT on lower extrimities) Hx Psychiatric Problems: No Hx Miscellaneous Medical Probl: Yes (Contracted LUE and LLE, Anemia) Physical Exam Vitals Vital Signs Date Temp Pulse Resp B/P (MAP) Pulse Ox O2 O2 Flow FiO2 Time Delivery Rate 08/29/18 12 60 100 07:30 08/29/18 0 06:58 Physical Exam Constitutional: Cachectic. HEENT:Normocephalic. Atraumatic.Pupils were fixed and dilated. Moist mucous membranes.No tonsillar exudates. Neck: No nuchal rigidity. No lymphadenopathy. No posterior cervical spine tenderness or step-offs. Tracheostomy site was clean dry and intact. Respiratory: No spontaneous ventilatory effort. Using bag mask ventilation over the tracheostomy site significant rhonchi heard bilaterally Cardiovascular: No murmurs no rubs and no cardiac heart sounds were appreciated. GI: Abdomen distended. No bowel sounds. PEG tube in place. Muscle skeletal: Muscle atrophy with flexion contraction of the bilateral lower extremities. No movement of the upper lower extremities. Skin: No petechia, no purpura. No lesions on the palms or the soles of the feet. No maculopapular rash. NEURO: Patient had GCS of 3. Results 24 hrs Current Medications Medications Dose Sig/Carlin Start Time Status Last (Trade) Ordered Route PRN Stop Time Admin Dose Reason Admin Sodium 2,400 ml BOLUS OVER 2 08/29/18 Cancel Chloride HOURS STAT 07:29 (NS) IV* 08/29/18 07:30 Cefepime HCl 50 ml @ ONCE STAT 08/29/18 Cancel 100 mls/hr IVPB 07:29 08/29/18 07:58 Vancomycin 250 ml @ ONCE ONCE 08/29/18 Cancel HCl 125 mls/hr IVPB 07:30 08/29/18 09:29 Procedures/MDM This is a 72-year-old male that presented to the emergency department with hypoxia and initially EMS had a tracing that indicated the patient had sinus tachycardia. However when the patient arrived at roughly 6:58 AM no pulse was appreciated. CPR was initially started and ACLS protocol was followed. Patient poor peripheral vascular access and therefore an IO was placed in the right lower extremity by myself. Blood was able to be withdrawn. The patient immediately had been placed on a bus driver/monitor continuous pulse oximetry. The patient was asystole. Despite receiving ACLS protocol the patient did not have return of spontaneous circulation. The patient's pupils were fixed and dilated. There is no spontaneous ventilatory effort. Cardiac ultrasound performed by myself at bedside showed no cardiac activity. Time of was called by myself at 7:15 AM. The family has been notified. Departure Diagnosis: Primary Impression: Cardiac arrest Condition: TESS Hood MD Aug 29, 2018 08:52
[2018-08-29] MEDS ORDERED: EPINEPHrine 10 MCG/1ml (10 ML SYG) IV ONE (20:00)
[2018-08-29] MEDS ORDERED: NA BICARBONATE 8.4% 50 ML SYG ONE (20:00)
[2018-08-29] MEDS ORDERED: CA CHLORIDE 10% 10 ML SYRINGE ONE (20:00)
== END 2018-08-29 10:14 | disposition expired ==
LOC: E/R 06:57
DX: I46.9 Cardiac arrest, cause unspecified (principal)
CPT/HCPCS: 92950; 94002; J0171; Z7502; Z7610; J7030